=== PATIENT | female | born 1985 | race Caucasian/White ===

== ENCOUNTER 2020-04-26 00:13 | Inpatient (IN) | payer MEDICARE, MEDICAID, SELFPAY ==
[2020-04-26] VITALS (15 sets, daily range): BP systolic 87–129; BP diastolic 55–71; PULSE 47–88; RESP 14–20; TEMP 36.2–37.1; O2SAT 97–100; BMI 31.8
--- NOTE | 2020-04-26 01:21 | CT_ITS ---
EXAMINATION: CT CHEST WITH CONTRAST CLINICAL INFORMATION: Right breast abscess. Necrotic tissue. COMPARISON: None. TECHNIQUE: Contiguous axial thin section helical images of the chest were performed following the administration of 65 mL of intravenous Omnipaque 350. The data set was reformatted in the coronal and sagittal planes and reviewed on an independent workstation. DLP: 373 mGy-cm. FINDINGS: The heart is of normal size. There is no pericardial effusion. There is neither mediastinal, hilar nor axillary lymphadenopathy. Beneath the right nipple, there is an approximately 8.3 cm low-attenuation focus with faint peripheral enhancement. About this focus, there is fat stranding and trace free fluid. Overlying this focus, there is skin thickening about the nipple. Review of lung windows demonstrates that there are neither pleural effusions nor pneumothoraces. There are no consolidations. There are no pulmonary parenchymal nodules. The visualized upper abdomen demonstrates that the liver is of normal size and attenuation without focal lesions. Normal adrenal glands are identified. Bone windows: Neither sclerotic nor lytic bone lesions are identified. CT/CT chest w con IMPRESSION: Approximately 8.3 cm low-attenuation focus with faint peripheral enhancement is identified deep to the right nipple. The appearance is nonspecific, though could correspond to an abscess or phlegmon. This lesion would be much better evaluated with ultrasound to determine the feasibility of draining the lesion. Automated exposure control (Care Dose) Adjustment of the mA and/or kv according to patient size (this includes techniques or standardized protocols for targeted exams where dose is matched to indication / reason for exam; i.e. extremities or head).
--- NOTE | 2020-04-26 01:40 | ED.SKABFB ---
HPI - Skin/Abscess/Foreign Bdy General Chief complaint: Skin/Abscess/Foreign Body Stated complaint: Lump on breast Time Seen by Provider: 04/26/20 00:56 Source: patient Mode of arrival: ambulatory Limitations: no limitations History of Present Illness HPI narrative: Patient comes to emergency room complaining of a lesion in her right breast. Patient states about 5 days ago, she noticed that her breast was getting erythematous, tender, yesterday patient notice that there was a black cervical on her breast, looked like a bruised with black dots in it. 24 hours later, it turned into a black eschar. Patient complaining of pain. Patient denies fever chills. Of note, likely related to today's condition, patient mentioned that she got bitten by a spider in her back approximately 1 month ago, the lesion healed. Three months ago patient had her nipples pierced, has not had any issues since then. MD complaint: abscess/boil, lesion and discoloration Related Data Home Medications Medication Instructions Recorded Confirmed clonazepam 1 tab PO TID 04/26/20 04/26/20 clonidine HCl 1 tab PO BID 04/26/20 04/26/20 gabapentin 2 cap PO TID 04/26/20 04/26/20 meloxicam 1 tab PO DAILY 04/26/20 04/26/20 topiramate 1 tab PO BID 04/26/20 04/26/20 venlafaxine 1 tab PO DAILY 04/26/20 04/26/20 Allergies Allergy/AdvReac Type Severity Reaction Status Date / Time No Known Allergies Allergy Verified 04/26/20 01:01 [No Known Allergies*] Review of Systems Review of Systems: Constitutional : No Weight loss, No Fever, No Chills, No Night Sweats, No Fatigue, No Malaise ENT/Mouth : No Hearing loss, No Ear Pain, No Nasal Congestion, No Sinus Pain, No Hoarseness, No sore throat, No Rhinorrhea, No Swallowing Difficulty Eyes: No Eye Pain, No Swelling, No Redness, No Foreign Body, No Discharge, No Vision Changes Cardiovascular : No Chest Pain, No SOB, No Dyspnea on Exertion, No Orthopnea, No Edema, No Palpitations Respiratory : No Cough, No Sputum, No Wheezing, No Smoke Exposure, No Dyspnea Gastrointestinal : No Nausea, No Vomiting, No Diarrhea, No Constipation, No abdominal Pain, No Hematochezia, No Melena Genitourinary : no irregular bleeding, No Dysuria, No Urinary Frequency, No Hematuria, No Urinary Incontinence, No Urgency, No Flank Pain, No Urinary Flow Changes, No Hesitancy Musculoskeletal : No joint pain, No Myalgias, No Joint Swelling Skin : Erythema and 2 cm x 2 cm eschar in the right breast Neuro : No Weakness, No Numbness, No Paresthesias, No Loss of Consciousness, No Dizziness, No Headache Psych : No Anxiety/Panic, No Depression, No SI/HI/AH/VH, No Social Issues, Heme/Lymph: No Bruising, No Bleeding,No Lymphadenopathy Endocrine : No Polyuria, No Polydipsia, No Temperature Intolerance [facility] Past Medical History Medical History Arthritis DJD (degenerative joint disease) Fibromyalgia Seizure Spinal stenosis Social History Social History Smoking Status: Current every day smoker Use of substances other than those prescribed or required for medical reasons: No Advance Directives: No Advance Directives Information Provided: No Physical Exam Vital Signs: Vital Signs: Last Vital Signs Temp 98.2 F 04/26/20 00:47 Pulse 88 04/26/20 00:47 Resp 17 04/26/20 00:47 BP 99/62 04/26/20 00:47 Pulse Ox 98 04/26/20 00:47 Body Mass Index 31.8 Appearance: Alert. Oriented X3. No acute distress. Eyes: Pupils equal, round and reactive to light. ENT: Pharynx normal. Neck: Normal inspection. Neck supple. No lymph nodes noted. No crepitus CVS: Normal heart rate and rhythm. Pulses normal. Normal S1 and S2 Respiratory: No respiratory distress. Breath sounds normal. No Wheezing. No rales Abdomen: Soft and nontender. No rigidity. No distention. good BS x4 Skin: Skin over the right breast is erythematous from the nipple medial aspect to the border of the breast medial aspect, tense, warm. At the border of the areola there is a 2 cm x 2 cm black eschar at the 3 o'clock position, piercing in nipple present, we attempted to remove the piercing Extremities: No lower extremity edema. No lower extremity edema. No Lacerations. No Rash Neuro: Oriented X 3. No motor deficit. No sensory deficit. Moving all extermities. No slurred speech. Course Course Course Narrative: IV fluids given based on ideal weight 55 kg. Patient's labs and and CT is pending. Sign-out given to Dr. Thibodeaux. I also spoke to our hospitalist Dr. Butler, who is aware that the patient is being admitted. Dr. Thibodeaux will also discuss with Dr. Vo if she wants to admit the patient to the surgery service or to the hospitalist service. Patient was started on IV fluids, vancomycin and Zosyn. Patient will likely need surgery consult in the morning for debridement. At this time, sepsis is not suspected CT scan showed an 8.3 cm attenuation, the appearance is nonspecific for abscess versus phlegmon. Ultrasound pending. I discussed the patient with Dr. Thibodeaux, US pending, Dr. Thibodeaux will consult the surgery Service, Dr. Vo has already been paged but the answering service seems to not be working at this time. To be discussed with surgery: discuss drainage in the ER versus drainage in the OR MDM - Skin/Abscess/Foreign Bdy Lab Data Result diagrams: 04/26/20 01:42 04/26/20 01:42 Labs: Lab Results 04/26/20 04/26/20 04/26/20 Range/Units 01:42 01:42 01:42 WBC 12.1 H (4.8-10.8) X10*3/uL RBC 4.36 (4.20-5.50) X10*6/uL Hgb 13.0 (12.0-16.0) g/dl Hct 39.1 (37-47) % MCV 89.7 (80-98) fL MCH 29.8 (27.0-33.0) pg MCHC 33.2 (31.0-35.0) g/dl RDW 13.4 (11.0-16.0) % Plt Count 353 (160-400) X10*3/uL MPV 10.6 (9.4-12.3) fL Immature Gran % (Auto) 0.5 H (0.0-0.4) % Neut % (Auto) 66.8 (45-73) % Lymph % (Auto) 22.7 (20-40) % [place] % (Auto) 5.8 (2-11) % Eos % (Auto) 3.4 (0-4) % Baso % (Auto) 0.8 (0-2) % Lymph # (Auto) 2.8 (1.2-4.9) X10*3/uL [place] # (Auto) 0.7 (0.1-1.2) X10*3/uL Eos # (Auto) 0.4 (0.0-0.4) X10*3/uL Baso # (Auto) 0.1 (0.0-0.2) X10*3/uL Abs Immat Gran (auto) 0.06 H (0.00-0.03) X10*3/uL Absolute Neuts (auto) 8.1 (2.0-8.3) X10*3/uL Absolute Nucleated RBC 0.000 (0.0-0.012) X10*3/uL Nucleated RBC % (auto) 0.0 (0.0-0.2) /100WBC Sodium 138 (135-145) mmol/L Potassium 3.8 (3.3-5.1) mmol/l Chloride 109 H (96-108) mmol/L Carbon Dioxide 21 L (22-29) mmol/L Anion Gap 12 (12-20) BUN 11 (9-16) mg/dL Creatinine 0.70 (0.5-1.4) mg/dL Estim Creat Clear Calc 113.5 Estimated GFR > 60 Random Glucose 83 (60-115) mg/dL Lactic Acid 0.7 (0.5-2.0) mmol/L Calcium 8.7 (8.4-10.2) mg/dL COVID-19 (VIDAL) (Negative) COVID-19 Clin Com 04/26/20 Range/Units 01:57 WBC (4.8-10.8) X10*3/uL RBC (4.20-5.50) X10*6/uL Hgb (12.0-16.0) g/dl Hct (37-47) % MCV (80-98) fL MCH (27.0-33.0) pg MCHC (31.0-35.0) g/dl RDW (11.0-16.0) % Plt Count (160-400) X10*3/uL MPV (9.4-12.3) fL Immature Gran % (Auto) (0.0-0.4) % Neut % (Auto) (45-73) % Lymph % (Auto) (20-40) % [place] % (Auto) (2-11) % Eos % (Auto) (0-4) % Baso % (Auto) (0-2) % Lymph # (Auto) (1.2-4.9) X10*3/uL [place] # (Auto) (0.1-1.2) X10*3/uL Eos # (Auto) (0.0-0.4) X10*3/uL Baso # (Auto) (0.0-0.2) X10*3/uL Abs Immat Gran (auto) (0.00-0.03) X10*3/uL Absolute Neuts (auto) (2.0-8.3) X10*3/uL Absolute Nucleated RBC (0.0-0.012) X10*3/uL Nucleated RBC % (auto) (0.0-0.2) /100WBC Sodium (135-145) mmol/L Potassium (3.3-5.1) mmol/l Chloride (96-108) mmol/L Carbon Dioxide (22-29) mmol/L Anion Gap (12-20) BUN (9-16) mg/dL Creatinine (0.5-1.4) mg/dL Estim Creat Clear Calc Estimated GFR Random Glucose (60-115) mg/dL Lactic Acid (0.5-2.0) mmol/L Calcium (8.4-10.2) mg/dL COVID-19 (VIDAL) Negative (Negative) COVID-19 Clin Com See Note Discharge Plan Discharge Clinical Impression: Abscess of skin or subcutaneous tissue Qualifiers: Site of cutaneous abscess: other site Qualified Code(s): L02.818 - Cutaneous abscess of other sites Cellulitis Qualifiers: Site of cellulitis: unspecified site Qualified Code(s): L03.90 - Cellulitis, unspecified Patient Disposition: Admitted As Inpatient
--- NOTE | 2020-04-26 01:46 | PC.NURSE ---
IV ACCESS OBTAINED BLOOD SPECIMEN SENT TO LAB, PT AWAITING FURTHER TESTING. RED INFLAMED AREA OF RIGHT BREAST OUTLINED WITH SURGICAL PEN.
[2020-04-26 01:50] LABS: Basophils Absolute Auto 0.1 X10*3/uL (0.0-0.2); Basophils Percent Auto 0.8 % (0-2); Eosinophils Absolute Auto 0.4 X10*3/uL (0.0-0.4); Eosinophils Percent Auto 3.4 % (0-4); Hematocrit 39.1 % (37-47); Imm Gran Abs Auto 0.06 X10*3/uL (0.00-0.03); Imm Gran Pct Auto 0.5 % (0.0-0.4); Lymphocytes Absolute Auto 2.8 X10*3/uL (1.2-4.9); Lymphocytes Percent Auto 22.7 % (20-40); Mean Corpuscular HGB Conc 33.2 g/dl (31.0-35.0); Mean Corpuscular Hemoglobin 29.8 pg (27.0-33.0); Mean Corpuscular Volume 89.7 fL (80-98); Mean Platelet Volume 10.6 fL (9.4-12.3); Monocytes Absolute Auto 0.7 X10*3/uL (0.1-1.2); Monocytes Percent Auto 5.8 % (2-11); Neutrophils Absolute Auto 8.1 X10*3/uL (2.0-8.3); Neutrophils Percent Auto 66.8 % (45-73); Platelet Count 353 X10*3/uL (160-400); Red Blood Count 4.36 X10*6/uL (4.20-5.50); Red Cell Distribution Width 13.4 % (11.0-16.0); White Blood Count 12.1 X10*3/uL (4.8-10.8)
[2020-04-26 01:54] LABS: MANUAL DIFF FLAG NO
[2020-04-26] MEDS: Piperacillin Sodium/Tazobactam 4.5 GM in 0.9 % Sodium Chloride 100 ML IV (02:00)
[2020-04-26] MEDS: 0.9 % Sodium Chloride 1,000 ML 999 ML IVCONT ×2 (02:00→02:02)
[2020-04-26 02:07] LABS: Lactic Acid 0.7 mmol/L (0.5-2.0)
[2020-04-26 02:09] LABS: Anion Gap 12 (12-20); Blood Urea Nitrogen 11 mg/dL (9-16); Calcium 8.7 mg/dL (8.4-10.2); Carbon Dioxide 21 mmol/L (22-29); Chloride 109 mmol/L (96-108); Creatinine Clr Calc Pharmacy 113.5; Estimated Glomerular Filt Rate > 60; Glucose Random 83 mg/dL (60-115); Potassium 3.8 mmol/l (3.3-5.1); Sodium 138 mmol/L (135-145)
[2020-04-26 02:18] LABS: COVID-19 Test Negative (Negative)
--- NOTE | 2020-04-26 03:09 | US_ITS ---
EXAMINATION: US DIAGNOSTIC ULTRASOUND BREAST, RIGHT CLINICAL INFORMATION: Right breast lesion. Abscess versus phlegmon. COMPARISON: Same day chest CT. TECHNIQUE: Ultrasound of the breast is performed with real-time hernandez scale imaging and color Doppler. FINDINGS: Deep to the right nipple near the 3:00 location is approximately 7.9 x 7.6 x 6.9 cm heterogeneous soft tissue echogenicity focus with faint peripheral fluid. US/US breast RT limited IMPRESSION: At the 3:00 location, there is an approximately 7.9 cm heterogeneous soft tissue echogenicity focus with faint peripheral fluid. The appearance is nonspecific, though likely corresponds to an abscess versus phlegmon. ASSESSMENT: BI-RADS 2: Benign This patient's information was entered into a reminder system with a target due date for their next mammogram.
[2020-04-26] MEDS: vancomycin HCL 1,000 MG in 0.9 % Sodium Chloride 250 ML 270 MG IV (03:16)
--- NOTE | 2020-04-26 03:50 | PC.NURSE ---
PT OFF TO TO US.
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
--- NOTE | 2020-04-26 08:06 | PC.NURSE ---
took pt from [facility] at 0700. pt sleeping since shift change. report to [facility] staff. transported to floor by pct. ms overflow to [facility]
--- NOTE | 2020-04-26 08:43 | PM.CNGS ---
History of Present Illness Consult details Consult date: 04/26/20 Reason for consult: other (Right breast abscess) Requesting physician: Gutierrez Butler Narrative: This is a 35-year-old female who has a few day history of increasing pain and swelling in the right breast. She reports that she developed a dark area on the upper aspect of the right breast that progressed to a black spot. She has not had any drainage from the breast. She has not had any similar problems in the past. She does not report any injuries. She smokes about a half pack of cigarettes per day. CT scan of the chest and ultrasound of the right breast were done in the emergency room and are consistent with a large abscess of the right breast. She has nipple piercings and has been unable to remove the piercing on the right. Review of Systems Constitutional: Constitutional: Denies chills and Denies fever(s) Cardiovascular: Cardiovascular: Denies chest pain, Denies chest pain with activity, Denies palpitations and Denies dyspnea Respiratory: Respiratory: Denies cough, Denies dyspnea and Denies wheezing Gastrointestinal: Gastrointestinal: Denies abdominal pain, Denies bloating, Denies nausea and Denies vomiting Genitourinary: Genitourinary: Reports no additional female genitourinary complaints Musculoskeletal: Comments: Chronic low back and leg pain, bilateral moses pain Integumentary/Breasts: Skin/Breast: Reports as per HPI Psychiatric: Comments: History of alcohol use Endocrine: Endocrine: Denies palpitations Hematologic/Lymphatic: Comments: No history of unusual bleeding or blood clots Allergic/Immunologic: Allergic/Immunologic: Denies wheezing PMFSH Past Medical History Medical History Arthritis DJD (degenerative joint disease) Fibromyalgia Seizure Spinal stenosis Social History Social History Household Members: Children Housing: Apartment Are you a primary primary care physician to a significant other at home: Yes Do you presently have visiting nurse or other home services: No Smoking Status: Current every day smoker Tobacco Type: Cigarette Packs Per Day: 0.5 Cigarettes Per Day: 10.0 Years Smoked: 15 Smoked in Last 30 Days: Yes Patient Interested in Nicotine Replacement: No Patient Given Instructions on How to Stop Smoking: Yes Date Education Initiated: 04/26/20 Second Hand Smoke Exposure: No Use of substances other than those prescribed or required for medical reasons: No Currently Displaying Signs/Symptoms of Drug Intoxication Withdrawal: No Have you been hit, kicked, punched, or otherwise hurt by someone within the past year? If so, by whom?: No Do you feel safe in your current relationship?: No Is there a partner from a previous relationship who is making you feel unsafe now?: No Are you made to feel afraid or neglected: No Advance Directives: Yes Advance Directives Information Provided: No Advance Directives on File: No Advance Directives Date on File: 04/26/20 Do you have thoughts of harming others: None Do you have a plan to hurt others: No Plan Recently lost weight without trying: No service: No Meds Allergies Allergy/AdvReac Type Severity Reaction Status Date / Time No Known Allergies Allergy Verified 04/26/20 01:01 [No Known Allergies*] Home Medications Medication Instructions Recorded Confirmed Type clonazepam 1 tab PO TID 04/26/20 04/26/20 History clonidine HCl 1 tab PO BID 04/26/20 04/26/20 History cyclobenzaprine 10 mg PO BEDTIME 04/26/20 04/26/20 History gabapentin 2 cap PO TID 04/26/20 04/26/20 History meloxicam 1 tab PO DAILY 04/26/20 04/26/20 History naltrexone microspheres [Vivitrol] 380 mg IM QMONTH 04/26/20 04/26/20 History topiramate 1 tab PO BID 04/26/20 04/26/20 History venlafaxine 1 tab PO DAILY 04/26/20 04/26/20 History Physical Exam Vital Signs: Vital Signs: Last Vital Signs Temp 98.2 F 04/26/20 00:47 Pulse 58 04/26/20 05:53 Resp 16 04/26/20 04:32 BP 95/58 L 04/26/20 05:53 Pulse Ox 100 04/26/20 05:53 Body Mass Index 31.8 Const: General: comfortable, no acute distress and alert Neck: Neck: Yes normal visual inspection, Yes trachea midline and Yes supple Lymphatic: no lymphadenopathy noted Chest: Other: Right breast: Nipple piercing in place, moderate swelling, severe tenderness and fluctuance primarily upper aspect, approximately 2.5 cm eschar present upper inner, no drainage Left breast: Nipple piercing in place, normal inspection Resp: Effort & Inspection: normal respiratory effort Auscultation: clear to auscultation bilaterally Cardio: Rate: regular rate Rhythm: regular rhythm Skin: Other: normal color, warm and dry Results Labs Result diagrams: 04/27/20 04:18 04/27/20 04:18 Labs: Abnormal lab results 04/26/20 04/26/20 Range/Units 01:42 01:42 WBC 12.1 H (4.8-10.8) X10*3/uL Immature Gran % (Auto) 0.5 H (0.0-0.4) % Abs Immat Gran (auto) 0.06 H (0.00-0.03) X10*3/uL Chloride 109 H (96-108) mmol/L Carbon Dioxide 21 L (22-29) mmol/L Short CBC 04/26/20 Range/Units 01:42 WBC 12.1 H (4.8-10.8) X10*3/uL Hgb 13.0 (12.0-16.0) g/dl Hct 39.1 (37-47) % Plt Count 353 (160-400) X10*3/uL BMP 04/26/20 01:42 Sodium 138 Potassium 3.8 Chloride 109 H Carbon Dioxide 21 L BUN 11 Creatinine 0.70 Calcium 8.7 All other labs normal. Laboratory Results WBC 12.1 X10*3/uL (4.8-10.8) H 04/26/20 01:42 RBC 4.36 X10*6/uL (4.20-5.50) 04/26/20 01:42 Hgb 13.0 g/dl (12.0-16.0) 04/26/20 01:42 Hct 39.1 % (37-47) 04/26/20 01:42 MCV 89.7 fL (80-98) 04/26/20 01:42 MCH 29.8 pg (27.0-33.0) 04/26/20 01:42 MCHC 33.2 g/dl (31.0-35.0) 04/26/20 01:42 RDW 13.4 % (11.0-16.0) 04/26/20 01:42 Plt Count 353 X10*3/uL (160-400) 04/26/20 01:42 MPV 10.6 fL (9.4-12.3) 04/26/20 01:42 Immature Gran % (Auto) 0.5 % (0.0-0.4) H 04/26/20 01:42 Neut % (Auto) 66.8 % (45-73) 04/26/20 01:42 Lymph % (Auto) 22.7 % (20-40) 04/26/20 01:42 Ballard % (Auto) 5.8 % (2-11) 04/26/20 01:42 Eos % (Auto) 3.4 % (0-4) 04/26/20 01:42 Baso % (Auto) 0.8 % (0-2) 04/26/20 01:42 Lymph # (Auto) 2.8 X10*3/uL (1.2-4.9) 04/26/20 01:42 Ballard # (Auto) 0.7 X10*3/uL (0.1-1.2) 04/26/20 01:42 Eos # (Auto) 0.4 X10*3/uL (0.0-0.4) 04/26/20 01:42 Baso # (Auto) 0.1 X10*3/uL (0.0-0.2) 04/26/20 01:42 Abs Immat Gran (auto) 0.06 X10*3/uL (0.00-0.03) H 04/26/20 01:42 Absolute Neuts (auto) 8.1 X10*3/uL (2.0-8.3) 04/26/20 01:42 Absolute Nucleated RBC 0.000 X10*3/uL (0.0-0.012) 04/26/20 01:42 Nucleated RBC % (auto) 0.0 /100WBC (0.0-0.2) 04/26/20 01:42 Sodium 138 mmol/L (135-145) 04/26/20 01:42 Potassium 3.8 mmol/l (3.3-5.1) 04/26/20 01:42 Chloride 109 mmol/L (96-108) H 04/26/20 01:42 Carbon Dioxide 21 mmol/L (22-29) L 04/26/20 01:42 Anion Gap 12 (12-20) 04/26/20 01:42 BUN 11 mg/dL (9-16) 04/26/20 01:42 Creatinine 0.70 mg/dL (0.5-1.4) 04/26/20 01:42 Estim Creat Clear Calc 113.5 04/26/20 01:42 Estimated GFR > 60 04/26/20 01:42 Random Glucose 83 mg/dL (60-115) 04/26/20 01:42 Lactic Acid 0.7 mmol/L (0.5-2.0) 04/26/20 01:42 Calcium 8.7 mg/dL (8.4-10.2) 04/26/20 01:42 COVID-19 (VIDAL) Negative (Negative) 04/26/20 01:57 COVID-19 Clin Com See Note 04/26/20 01:[address] 04/26/20 01:21 IMPRESSION: Approximately 8.3 cm low-attenuation focus with faint peripheral enhancement is identified deep to the right nipple. The appearance is nonspecific, though could correspond to an abscess or phlegmon. This lesion would be much better evaluated with ultrasound to determine the feasibility of draining the lesion. Automated exposure control (Care Dose) Adjustment of the mA and/or kv according to patient size (this includes techniques or standardized protocols for targeted exams where dose is matched to indication / reason for exam; i.e. extremities or head). Breast Ultrasound 04/26/20 03:09 IMPRESSION: At the 3:00 location, there is an approximately 7.9 cm heterogeneous soft tissue echogenicity focus with faint peripheral fluid. The appearance is nonspecific, though likely corresponds to an abscess versus phlegmon. ASSESSMENT: BI-RADS 2: Benign This patient's information was entered into a reminder system with a target due date for their next mammogram. Assessment and Plan (1) Abscess of right breast: Status: Acute She has a right breast abscess with overlying eschar. Operative drainage rather than image guided drainage is appropriate. I have discussed this with her and have reviewed risks for recurrence, infection, bleeding, and scarring with breast deformity. The nipple piercing will be removed under anesthesia and may need to be cut if it cannot be removed when she is asleep. She was unable to remove it while awake. She agrees to proceed. She has been started on IV antibiotics. Surgery is scheduled for later today.
--- NOTE | 2020-04-26 09:02 | MHC.CM.PN ---
met benavides pt who had no servceis prior to admission she does not anticapte the need for sercveis when dcd
[2020-04-26] MEDS: Lactated Ringers 500 ML 999 ML IVCONT (09:54)
--- NOTE | 2020-04-26 10:39 | P.CONAN_ITS ---
HPI - Anesthesia Eval Consult details Narrative: 35 F p/f breast abscess I&D under [place] [facility] Past Medical History Medical History Arthritis DJD (degenerative joint disease) Fibromyalgia Seizure Spinal stenosis Social History Social History Household Members: Children Housing: Apartment Do you presently have visiting nurse or other home services: No Smoking Status: Current every day smoker Tobacco Type: Cigarette Packs Per Day: 0.5 Cigarettes Per Day: 10.0 Years Smoked: 15 Smoked in Last 30 Days: Yes Patient Interested in Nicotine Replacement: No Patient Given Instructions on How to Stop Smoking: Yes Date Education Initiated: 04/26/20 Second Hand Smoke Exposure: No Use of substances other than those prescribed or required for medical reasons: No Currently Displaying Signs/Symptoms of Drug Intoxication Withdrawal: No Have you been hit, kicked, punched, or otherwise hurt by someone within the past year? If so, by whom?: No Do you feel safe in your current relationship?: No Is there a partner from a previous relationship who is making you feel unsafe now?: No Are you made to feel afraid or neglected: No Advance Directives: Yes Advance Directives Information Provided: No Advance Directives on File: No Advance Directives Date on File: 04/26/20 Do you have thoughts of harming others: None Do you have a plan to hurt others: No Plan Recently lost weight without trying: No service: No Meds Allergies Allergy/AdvReac Type Severity Reaction Status Date / Time No Known Allergies Allergy Verified 04/26/20 01:01 [No Known Allergies*] Home Medications Medication Instructions Recorded Confirmed Type clonazepam 1 tab PO TID 04/26/20 04/26/20 History clonidine HCl 1 tab PO BID 04/26/20 04/26/20 History gabapentin 2 cap PO TID 04/26/20 04/26/20 History meloxicam 1 tab PO DAILY 04/26/20 04/26/20 History topiramate 1 tab PO BID 04/26/20 04/26/20 History venlafaxine 1 tab PO DAILY 04/26/20 04/26/20 History Exam Exam Date and Time: April 26, 2020 1039 Height,Weight and Vital Signs: Height 5 ft 3 in Weight 81.647 kg Last Vital Signs Temp 97.6 F 04/26/20 08:00 Pulse 57 04/26/20 08:00 Resp 17 04/26/20 08:00 BP 103/61 04/26/20 08:00 Pulse Ox 99 04/26/20 08:00 Pertinent Lab Results Pertinent Lab Results: Laboratory Tests 04/26/20 04/26/20 04/26/20 01:42 01:42 01:42 WBC 12.1 H RBC 4.36 Hgb 13.0 Hct 39.1 MCV 89.7 MCH 29.8 MCHC 33.2 RDW 13.4 Plt Count 353 MPV 10.6 Immature Gran % (Auto) 0.5 H Neut % (Auto) 66.8 Lymph % (Auto) 22.7 Mccracken % (Auto) 5.8 Eos % (Auto) 3.4 Baso % (Auto) 0.8 Lymph # (Auto) 2.8 [place]racken # (Auto) 0.7 Eos # (Auto) 0.4 Baso # (Auto) 0.1 Abs Immat Gran (auto) 0.06 H Absolute Neuts (auto) 8.1 Absolute Nucleated RBC 0.000 Nucleated RBC % (auto) 0.0 Sodium 138 Potassium 3.8 Chloride 109 H Carbon Dioxide 21 L Anion Gap 12 BUN 11 Creatinine 0.70 Estim Creat Clear Calc 113.5 Estimated GFR > 60 Random Glucose 83 Lactic Acid 0.7 Calcium 8.7 COVID-19 (VIDAL) COVID-19 Clin Com 04/26/20 01:57 WBC RBC Hgb Hct MCV MCH MCHC RDW Plt Count MPV Immature Gran % (Auto) Neut % (Auto) Lymph % (Auto) Mccracken % (Auto) Eos % (Auto) Baso % (Auto) Lymph # (Auto) M[place]racken # (Auto) Eos # (Auto) Baso # (Auto) Abs Immat Gran (auto) Absolute Neuts (auto) Absolute Nucleated RBC Nucleated RBC % (auto) Sodium Potassium Chloride Carbon Dioxide Anion Gap BUN Creatinine Estim Creat Clear Calc Estimated GFR Random Glucose Lactic Acid Calcium COVID-19 (VIDAL) Negative COVID-19 Clin Com See Note Airway Mallampati Class: II TM Dist: >3cm Neck ROM: Full Loose/Missing/Broken Teeth: No Heart: rrr Lungs: n l Other: ao Assessment and Plan Assessment Anesthesia Assessment: Anesthesia Plan Discussed and Chart Reviewed Final Anesthetic Review NPO: Yes ASA Class: II Final Preanesthetic Review: No Changes in Pt Med Stat, Meds/Allgs Chart Reviewed, Consent Obtained/Reviewed and Anes Risks/Benef Reviewed Patient Risk: Low Procedure Risk: Low Anesthetic Plan Anesthetic Plan: GA Disposition: Standard PACU
[2020-04-26 10:56] LABS: UPreg QC Valid YES; Urine Pregnancy NEGATIVE (NEGATIVE)
--- NOTE | 2020-04-26 11:35 | HO.PM.IMPN ---
Subjective Subjective Date of Service: 04/26/20 Interval History: improved Cardiovascular Cardiovascular: Reports no additional cardiovascular complaints Respiratory Respiratory: Reports no additional respiratory complaints Physical Exam Vital Signs: Vital Signs: Last Vital Signs Temp 97.1 F 04/26/20 11:01 Pulse 58 04/26/20 11:01 Resp 17 04/26/20 11:01 BP 103/59 L 04/26/20 11:01 Pulse Ox 98 04/26/20 11:01 Body Mass Index 31.8 General: AO X 3, no acute distress Resp: CTA bilateral CVS: S1,S2,RRR GI: soft, non tender, non distended Neuro: motor grossly intact Psych: appropriate affect Objective Data Current Medications Generic Name Dose Route Start Last Admin Trade Name Freq PRN Reason Stop Dose Admin Acetaminophen 650 mg 04/26/20 06:12 Acetaminophen 325 Mg Tablet PO Q6H PRN Pain, Mild (Pain Scale 1-3) Clonazepam 0.5 mg 04/26/20 09:00 Clonazepam 0.5 Mg Tablet PO TID CHRISTY Docusate Sodium 100 mg 04/26/20 06:12 Docusate Sodium 100 Mg Capsule PO DAILY PRN Constipation Gabapentin 600 mg 04/26/20 09:00 Gabapentin 300 Mg Capsule PO TID CHRISTY Vancomycin HCl 750 mg/ 275 mls @ 183.333 mls/hr 04/26/20 15:00 Vancomycin HCl 500 mg/ Sodium IV Chloride Q12H CHRISTY Lactated Ringer's 1,000 mls @ 50 mls/hr 04/26/20 11:45 Lr IVCONT .Q20H CHRISTY Ketorolac Tromethamine 30 mg 04/26/20 06:12 Ketorolac Tromethamine 30 Mg/Ml Vial IVPUSH Q6H PRN Pain, Mild (Pain Scale 1-3) Ondansetron HCl 4 mg 04/26/20 06:12 Ondansetron Hcl 4 Mg/2 Ml Vial IVPUSH Q8H PRN Nausea and Vomiting Pharmacy Consult 1 each 04/26/20 01:44 Consult Rx Perform Med Rec MISCELLANE ONCE PRN Consult order Pharmacy Consult 1 each 04/26/20 06:12 Consult Rx Vancomycin Dosing MISCELLANE DAILY PRN Consult order Pharmacy Consult 1 each 04/26/20 07:14 Consult Rx Vancomycin Dosing MISCELLANE DAILY PRN Consult order Sodium Chloride 3 ml 04/26/20 08:00 04/26/20 09:55 0.9 % Sodium Chloride Flush 3 Ml Syringe IVFLUSH Not Given QSHIFT CHRISTY Topiramate 100 mg 04/26/20 09:00 Topiramate 100 Mg Tablet PO BID CHRISTY Venlafaxine HCl 225 mg 04/26/20 09:00 Venlafaxine Hcl Er 75 Mg Cap.Er.24h PO DAILY CHRISTY Labs CBC & Chem 7: 04/26/20 01:42 04/26/20 01:42 Assessment and Plan (1) Abscess of skin or subcutaneous tissue: Status: Acute (2) Cellulitis: Status: Acute Assessment and Plan: This is a 35-year-old female with past medical history as mentioned above who presents to the hospital with right breast swelling as well as skin changes breast abscess surgery appreciated plan for drainage continue vanc hypertension on clonidine, relative hypotension, on hold seizure topiramate DVT prophylaxis: Early ambulation/SCDs
[2020-04-26] MEDS: Acetaminophen 325 MG TABLET 975 MG PO (11:58)
[2020-04-26] MEDS: Gabapentin 400 MG CAPSULE PO (12:01)
[2020-04-26] MEDS: Topiramate 100 MG TABLET PO ×2 (12:01→20:54)
--- NOTE | 2020-04-26 13:14 | P.OP_ITS ---
Operative Note Operative Note Date of Service: 04/26/20 Narrative: Preoperative diagnosis: Right breast abscess Postoperative diagnosis: Same Procedure: Incision, drainage and debridement right breast Building Maintenance Worker: Vivienne Nielsen PA-C Anesthesia: General laryngeal mask Estimated blood loss: Less than 5 cc Specimen: Cultures Immediate complications: None Indications: This is a 35-year-old female with a several day history of increasing pain and swelling in the right breast as well as the dark discoloration in the medial aspect of the right breast. Examination and imaging revealed findings consistent with a right breast abscess with focal eschar. Procedure in detail: With the patient in the supine position following induction of adequate general anesthesia, time-out procedure was performed. She was on scheduled antibiotics and no additional antibiotics were administered. The right breast was prepped with Betadine solution and was draped sterilely. The eschar measured about 2.5 cm in diameter and was located around the 3 o'clock position extending from the medial aspect of the areola into the medial breast. Incision was made along the border of the eschar and in the yeah immediate subcutaneous tissue, the abscess cavity was encountered. A large a mount of thick purulence material was drained. Cultures were taken. The eschar was removed using sharp excision with Metzenbaum scissors. Excision was carried back to healthy-appearing skin edges. The wound was copiously irrigated with saline solution and was inspected for bleeding. No significant bleeding was identified. Along the superior aspect of the wound, skin edges were loosely reapproximated using 2 interrupted sutures of 3-0 nylon spaced approximately 12 mm apart. Two pieces of quarter-inch Angela drain were employed. One was placed through the open portion of the incision inferiorly and directed laterally beneath the areola into the deeper breast tissues. The 2nd piece was placed extending medially and posteriorly. Both were sutured in place to the skin edge using interrupted sutures of 3-0 nylon. A bulky dry sterile dressing was then applied. She tolerated the procedure well and was transported to the postanesthesia care unit in stable condition. There were no immediate complications.
[2020-04-26] MEDS: clonazePAM 0.5 MG TABLET PO ×2 (14:43→20:55)
[2020-04-26] MEDS: Gabapentin 300 MG CAPSULE 600 MG PO ×2 (14:43→20:54)
[2020-04-26] MEDS: Ketorolac Tromethamine 30 MG/ML VIAL IVPUSH (14:57)
[2020-04-26] MEDS: 0.9 % Sodium Chloride Flush 3 ML SYRINGE IVFLUSH ×2 (16:08→20:55)
[2020-04-26] MEDS: Cyclobenzaprine HCl 10 MG TABLET PO (20:54)
[2020-04-27 03:37] VITALS: BP 109/69; PULSE 69; RESP 20; TEMP 36.7; O2SAT 97
[2020-04-27 04:43] LABS: MANUAL DIFF FLAG NO
[2020-04-27 04:56] LABS: Basophils Absolute Auto 0.1 X10*3/uL (0.0-0.2); Basophils Percent Auto 0.5 % (0-2); Eosinophils Absolute Auto 0.1 X10*3/uL (0.0-0.4); Eosinophils Percent Auto 0.9 % (0-4); Hematocrit 36.3 % (37-47); Hemoglobin 11.6 g/dl (12.0-16.0); Imm Gran Abs Auto 0.07 X10*3/uL (0.00-0.03); Imm Gran Pct Auto 0.6 % (0.0-0.4); Lymphocytes Absolute Auto 2.3 X10*3/uL (1.2-4.9); Lymphocytes Percent Auto 19.9 % (20-40); Mean Corpuscular Hemoglobin 29.4 pg (27.0-33.0); Mean Corpuscular Volume 91.9 fL (80-98); Mean Platelet Volume 10.9 fL (9.4-12.3); Monocytes Absolute Auto 0.6 X10*3/uL (0.1-1.2); Monocytes Percent Auto 5.2 % (2-11); Neutrophils Absolute Auto 8.3 X10*3/uL (2.0-8.3); Neutrophils Percent Auto 72.9 % (45-73); Platelet Count 295 X10*3/uL (160-400); Red Blood Count 3.95 X10*6/uL (4.20-5.50); Red Cell Distribution Width 13.6 % (11.0-16.0); White Blood Count 11.4 X10*3/uL (4.8-10.8)
[2020-04-27 05:20] LABS: Anion Gap 13 (12-20); Blood Urea Nitrogen 10 mg/dL (9-16); Calcium 8.3 mg/dL (8.4-10.2); Carbon Dioxide 19 mmol/L (22-29); Chloride 113 mmol/L (96-108); Creatinine Clr Calc Pharmacy 128.1; Estimated Glomerular Filt Rate > 60; Glucose Random 113 mg/dL (60-115); Sodium 141 mmol/L (135-145)
[2020-04-27 07:51] VITALS: BP 114/65; PULSE 52; RESP 19; TEMP 36; O2SAT 98
[2020-04-27] MEDS: Topiramate 100 MG TABLET PO ×2 (08:43→20:29)
[2020-04-27] MEDS: clonazePAM 0.5 MG TABLET PO ×3 (08:44→20:29)
[2020-04-27] MEDS: Gabapentin 300 MG CAPSULE 600 MG PO ×3 (08:45→20:27)
[2020-04-27] MEDS: Venlafaxine HCl ER 75 MG CAP.ER.24H 225 MG PO (08:46)
[2020-04-27] MEDS: 0.9 % Sodium Chloride Flush 3 ML SYRINGE IVFLUSH ×3 (08:47→20:29)
--- NOTE | 2020-04-27 09:14 | PM.PNGS ---
Subjective Subjective Date of Service: 04/27/20 <Vivienne Nielsen PA-C - Last Filed: 04/27/20 09:19> 04/27/20 <Winnie Tello MD - Last Filed: 04/27/20 12:09> Interval history: Feels much better this morning, pain has decreased. Wondering about going home. <Vivienne Nielsen PA-C - Last Filed: 04/27/20 09:19> Physical Exam Vital Signs: Vital Signs: Last Vital Signs Temp 96.8 F 04/27/20 07:51 Pulse 52 04/27/20 07:51 Resp 19 04/27/20 07:51 BP 114/65 04/27/20 07:51 Pulse Ox 98 04/27/20 07:51 Body Mass Index 31.8 <Vivienne Nielsen PA-C - Last Filed: 04/27/20 09:19> Const: General: comfortable, no acute distress and alert <Vivienne Nielsen PA-C - Last Filed: 04/27/20 09:19> Orientation/consciousness: patient oriented x3 <Vivienne Nielsen PA-C - Last Filed: 04/27/20 09:19> Chest: Other: right breast I&D site- sutures intact, remains partially open with toby drains in place, induration and erythema significantly improved, continues with purulent drainage, tender, no further eschar <Vivienne Nielsen PA-C - Last Filed: 04/27/20 09:19> Resp: Effort & Inspection: normal respiratory effort <Vivienne Nielsen PA-C - Last Filed: 04/27/20 09:19> Skin: Rashes: no rashes <Vivienne Nielsen PA-C - Last Filed: 04/27/20 09:19> Neuro: General: patient oriented x3 <Vivienne Nielsen PA-C - Last Filed: 04/27/20 09:19> Extrem: General: Yes no clubbing, cyanosis or edema <Vivienne Nielsen PA-C - Last Filed: 04/27/20 09:19> Progress Note: A&P Assessment and plan (1) Abscess of right breast: Problem details: POD #1 s/p I & D & debridement <Vivienne Nielsen PA-C - Last Filed: 04/27/20 09:19> Status: Acute <Vivienne Nielsen PA-C - Last Filed: 04/27/20 09:19> Assessment and Plan: Remains open and draining; cellulitic changes significantly improved. Vitals, WBC improved. Cont IV abx for at least another day. F/u abscess cultures. Possibly home tomorrow. Will need VNA for dressing changes. Can f/u with Dr. Tello in office for wound care. <Vivienne Nielsen PA-C - Last Filed: 04/27/20 09:19> (2) Cellulitis: Status: Acute <ETTA Herron Last Filed: 04/27/20 09:19> Fall Risk Details Current Medications: Current Medications Generic Name Dose Route Start Last Admin Trade Name Freq PRN Reason Stop Dose Admin Acetaminophen 650 mg 04/26/20 06:12 Acetaminophen 325 Mg Tablet PO Q6H PRN Pain, Mild (Pain Scale 1-3) Clonazepam 0.5 mg 04/26/20 09:00 04/27/20 08:44 Clonazepam 0.5 Mg Tablet PO 0.5 mg TID CHRISTY Administration Cyclobenzaprine HCl 10 mg 04/26/20 21:00 04/26/20 20:54 Cyclobenzaprine Hcl 10 Mg Tablet PO 10 mg BEDTIME CHRISTY Administration Docusate Sodium 100 mg 04/26/20 06:12 Docusate Sodium 100 Mg Capsule PO DAILY PRN Constipation Gabapentin 600 mg 04/26/20 09:00 04/27/20 08:45 Gabapentin 300 Mg Capsule PO 600 mg TID CHRISTY Administration Vancomycin HCl 750 mg/ 275 mls @ 183.333 mls/hr 04/26/20 15:00 04/27/20 05:29 Vancomycin HCl 500 mg/ Sodium IV Infused Chloride Q12H CHRISTY Infusion Ketorolac Tromethamine 30 mg 04/26/20 06:12 04/26/20 14:57 Ketorolac Tromethamine 30 Mg/Ml Vial IVPUSH 30 mg Q6H PRN Administration Pain, Mild (Pain Scale 1-3) Ketorolac Tromethamine 30 mg 04/26/20 13:28 Ketorolac Tromethamine 30 Mg/Ml Vial IVPUSH ONCE PRN Pain, Moderate (Pain Scale 4-6 Ondansetron HCl 4 mg 04/26/20 06:12 Ondansetron Hcl 4 Mg/2 Ml Vial IVPUSH Q8H PRN Nausea and Vomiting Pharmacy Consult 1 each 04/26/20 01:44 Consult Rx Perform Med Rec MISCELLANE ONCE PRN Consult order Pharmacy Consult 1 each 04/26/20 06:12 Consult Rx Vancomycin Dosing MISCELLANE DAILY PRN Consult order Pharmacy Consult 1 each 04/26/20 07:14 Consult Rx Vancomycin Dosing MISCELLANE DAILY PRN Consult order Sodium Chloride 3 ml 04/26/20 08:00 04/27/20 08:47 0.9 % Sodium Chloride Flush 3 Ml Syringe IVFLUSH 3 ml QSHIFT CHRISTY Administration Topiramate 100 mg 04/26/20 09:00 04/27/20 08:43 Topiramate 100 Mg Tablet PO 100 mg BID CHRISTY Administration Venlafaxine HCl 225 mg 04/26/20 09:00 04/27/20 08:46 Venlafaxine Hcl Er 75 Mg Cap.Er.24h PO 225 mg DAILY CHRISTY Administration <Vivienne Nielsen PA-C - Last Filed: 04/27/20 09:19> Time Spent With Patient Time: Total time spent is greater than 50% in coordination of care (as documented) at patient's floor/unit and/or counseling patient: <Vivienne Nielsen PA-C - Last Filed: 04/27/20 09:19> Time with patient: 15 - 24 minutes <Vivienne Nielsen PA-C - Last Filed: 04/27/20 09:19>
--- NOTE | 2020-04-27 09:38 | HO.PM.IMPN ---
Subjective Subjective Date of Service: 04/27/20 Interval History: feeling better Cardiovascular Cardiovascular: Reports no additional cardiovascular complaints Respiratory Respiratory: Reports no additional respiratory complaints Physical Exam Vital Signs: Vital Signs: Last Vital Signs Temp 96.8 F 04/27/20 07:51 Pulse 52 04/27/20 07:51 Resp 19 04/27/20 07:51 BP 114/65 04/27/20 07:51 Pulse Ox 98 04/27/20 07:51 Body Mass Index 31.8 General: AO X 3, no acute distress Resp: CTA bilateral CVS: S1,S2,RRR GI: soft, non tender, non distended Neuro: motor grossly intact Psych: appropriate affect Objective Data Current Medications Generic Name Dose Route Start Last Admin Trade Name Freq PRN Reason Stop Dose Admin Acetaminophen 650 mg 04/26/20 06:12 Acetaminophen 325 Mg Tablet PO Q6H PRN Pain, Mild (Pain Scale 1-3) Clonazepam 0.5 mg 04/26/20 09:00 04/27/20 08:44 Clonazepam 0.5 Mg Tablet PO 0.5 mg TID CHRISTY Administration Cyclobenzaprine HCl 10 mg 04/26/20 21:00 04/26/20 20:54 Cyclobenzaprine Hcl 10 Mg Tablet PO 10 mg BEDTIME CHRISTY Administration Docusate Sodium 100 mg 04/26/20 06:12 Docusate Sodium 100 Mg Capsule PO DAILY PRN Constipation Gabapentin 600 mg 04/26/20 09:00 04/27/20 08:45 Gabapentin 300 Mg Capsule PO 600 mg TID CHRISTY Administration Vancomycin HCl 750 mg/ 275 mls @ 183.333 mls/hr 04/26/20 15:00 04/27/20 05:29 Vancomycin HCl 500 mg/ Sodium IV Infused Chloride Q12H CHRISTY Infusion Ketorolac Tromethamine 30 mg 04/26/20 06:12 04/26/20 14:57 Ketorolac Tromethamine 30 Mg/Ml Vial IVPUSH 30 mg Q6H PRN Administration Pain, Mild (Pain Scale 1-3) Ketorolac Tromethamine 30 mg 04/26/20 13:28 Ketorolac Tromethamine 30 Mg/Ml Vial IVPUSH ONCE PRN Pain, Moderate (Pain Scale 4-6 Ondansetron HCl 4 mg 04/26/20 06:12 Ondansetron Hcl 4 Mg/2 Ml Vial IVPUSH Q8H PRN Nausea and Vomiting Pharmacy Consult 1 each 04/26/20 01:44 Consult Rx Perform Med Rec MISCELLANE ONCE PRN Consult order Pharmacy Consult 1 each 04/26/20 06:12 Consult Rx Vancomycin Dosing MISCELLANE DAILY PRN Consult order Pharmacy Consult 1 each 04/26/20 07:14 Consult Rx Vancomycin Dosing MISCELLANE DAILY PRN Consult order Sodium Chloride 3 ml 04/26/20 08:00 04/27/20 08:47 0.9 % Sodium Chloride Flush 3 Ml Syringe IVFLUSH 3 ml QSHIFT CHRISTY Administration Topiramate 100 mg 04/26/20 09:00 04/27/20 08:43 Topiramate 100 Mg Tablet PO 100 mg BID CHRISTY Administration Venlafaxine HCl 225 mg 04/26/20 09:00 04/27/20 08:46 Venlafaxine Hcl Er 75 Mg Cap.Er.24h PO 225 mg DAILY CHRISTY Administration Labs CBC & Chem 7: 04/27/20 04:18 04/27/20 04:18 Microbiology Microbiology Results: Microbiology 04/26/20 01:42 Blood - Venous Blood Culture - Preliminary No growth after 24 hours. 04/26/20 01:44 Blood - Venous Blood Culture - Preliminary No growth after 24 hours. 04/26/20 Unknown Breast Right Gram Stain - Final Assessment and Plan (1) Abscess of skin or subcutaneous tissue: Status: Acute (2) Cellulitis: Status: Acute Assessment and Plan: This is a 35-year-old female with past medical history as mentioned above who presents to the hospital with right breast swelling as well as skin changes breast abscess surgery appreciated s/p I and D continue vanc IV another day, follow up cultures hypertension on clonidine, relative hypotension, on hold, can likely stop seizure topiramate DVT prophylaxis: Early ambulation/SCDs
[2020-04-27 11:40] VITALS: BP 116/65; PULSE 62; RESP 20; TEMP 36.3; O2SAT 100
--- NOTE | 2020-04-27 11:45 | MHC.CM.PN ---
Addendum entered by Celsa Kitchen RN 04/27/20 16:21: PT CHOSE [facility], PER PT REQUEST PT FIRST VISIT WILL BE 04/30/20, NURSING TO START TEEACHING FOR DRESSING CHANGES AND DRAIN CARE. Addendum entered by Celsa Kitchen RN 04/27/20 15:36: VERIFIED PATIENT PHONE NUMBER [phone] Original Note: CM MET WITH PATIENT DUE TO NEED FOR VNA SERVICES, PATIENT HAS NO PREFERENCE OF [facility], REFERRAL MADE TO [facility], CM VERIFIED PCP AND HCP WITH PATIENT. PATIENT WAS TEARFUL AND REPORTS SHE WANTED TO LEAVE TODAY DUE TO NOT FINISHING HER PIO SHOPPING HOWEVER SPOKE WITH SURGEON AND KNOWS SHE NEEDS AT LEAST ONE MORE DAY OF IV ANTIBIOTICS. PLAN TO DISCHARGE HOME W/[facility] FOR DRESSING CHANGES AND DRAINS. PCP: DONNA KING HCP: CYDNEY REMY (MOTHER) [phone]
[2020-04-27] MEDS: Acetaminophen 325 MG TABLET 650 MG PO (13:41)
[2020-04-27 13:47] LABS: Vancomycin Trough 13.7 mcg/mL (10.0-20.0)
[2020-04-27 15:51] VITALS: BP 112/63; PULSE 69; RESP 16; TEMP 36.7; O2SAT 99
[2020-04-27 19:12] VITALS: BP 112/78; PULSE 68; RESP 20; TEMP 36.7; O2SAT 98
[2020-04-27] MEDS: Ketorolac Tromethamine 30 MG/ML VIAL IVPUSH (19:19)
[2020-04-27] MEDS: Cyclobenzaprine HCl 10 MG TABLET PO (20:28)
[2020-04-27 23:23] VITALS: BP 100/61; PULSE 69; RESP 20; TEMP 36.7; O2SAT 96
[2020-04-28] MEDS: Acetaminophen 325 MG TABLET 650 MG PO (03:46)
[2020-04-28 03:48] VITALS: BP 101/67; PULSE 51; RESP 19; TEMP 36.7; O2SAT 98
[2020-04-28 06:19] LABS: MANUAL DIFF FLAG NO
[2020-04-28 06:22] LABS: Basophils Absolute Auto 0.1 X10*3/uL (0.0-0.2); Basophils Percent Auto 1.3 % (0-2); Eosinophils Absolute Auto 0.5 X10*3/uL (0.0-0.4); Eosinophils Percent Auto 5.6 % (0-4); Hematocrit 35.7 % (37-47); Hemoglobin 11.4 g/dl (12.0-16.0); Imm Gran Abs Auto 0.08 X10*3/uL (0.00-0.03); Lymphocytes Absolute Auto 3.3 X10*3/uL (1.2-4.9); Lymphocytes Percent Auto 41.2 % (20-40); Mean Corpuscular HGB Conc 31.9 g/dl (31.0-35.0); Mean Corpuscular Hemoglobin 29.2 pg (27.0-33.0); Mean Corpuscular Volume 91.5 fL (80-98); Mean Platelet Volume 10.9 fL (9.4-12.3); Monocytes Absolute Auto 0.5 X10*3/uL (0.1-1.2); Neutrophils Absolute Auto 3.6 X10*3/uL (2.0-8.3); Neutrophils Percent Auto 44.9 % (45-73); Platelet Count 278 X10*3/uL (160-400); Red Cell Distribution Width 13.9 % (11.0-16.0)
[2020-04-28 07:11] LABS: Anion Gap 11 (12-20); Blood Urea Nitrogen 16 mg/dL (9-16); Calcium 8.1 mg/dL (8.4-10.2); Carbon Dioxide 21 mmol/L (22-29); Chloride 114 mmol/L (96-108); Creatinine Clr Calc Pharmacy 115.1; Estimated Glomerular Filt Rate > 60; Glucose Fasting 87 mg/dL (60-99); Sodium 142 mmol/L (135-145)
[2020-04-28 08:00] VITALS: BP 151/84; PULSE 55; RESP 16; TEMP 36.4; O2SAT 98
[2020-04-28] MEDS: Gabapentin 300 MG CAPSULE 600 MG PO (08:46)
[2020-04-28] MEDS: Topiramate 100 MG TABLET PO (08:47)
[2020-04-28] MEDS: Venlafaxine HCl ER 75 MG CAP.ER.24H 225 MG PO (08:48)
[2020-04-28] MEDS: 0.9 % Sodium Chloride Flush 3 ML SYRINGE IVFLUSH (08:49)
[2020-04-28] MEDS: clonazePAM 0.5 MG TABLET PO (08:52)
--- NOTE | 2020-04-28 09:04 | P.PNGS_ITS ---
Subjective Subjective Date of Service: 04/28/20 Interval history: She reports ongoing right breast pain, worse with movement, but improved from preop. Physical Exam Vital Signs: Vital Signs: Last Vital Signs Temp 97.5 F 04/28/20 08:00 Pulse 55 04/28/20 08:00 Resp 16 04/28/20 08:00 BP 151/84 H 04/28/20 08:00 Pulse Ox 98 04/28/20 08:00 Body Mass Index 31.8 Const: Other: Alert, appears comfortable, in no distress Chest: Other: Right breast open wound upper inner quadrant at areolar margin. Angela drains in place. Stitches are intact but may cut through. Moderate bloody purulence drainage on dressing. Minimal erythema Progress Note: A&P Assessment and plan (1) Abscess of right breast: Problem details: POD #1 s/p I & D & debridement. Cultures are growing Staph. Status: Acute Assessment and Plan: She is improving. Discussed with Dr. Lacey. She will be discharged today. We will arrange for visiting nurses. She will follow up in the office next week for wound check and drain removal. Fall Risk Details Current Medications: Current Medications Generic Name Dose Route Start Last Admin Trade Name Freq PRN Reason Stop Dose Admin Acetaminophen 650 mg 04/26/20 06:12 04/28/20 03:46 Acetaminophen 325 Mg Tablet PO 650 mg Q6H PRN Administration Pain, Mild (Pain Scale 1-3) Clonazepam 0.5 mg 04/26/20 09:00 04/28/20 08:52 Clonazepam 0.5 Mg Tablet PO 0.5 mg TID CHRISTY Administration Cyclobenzaprine HCl 10 mg 04/26/20 21:00 04/27/20 20:28 Cyclobenzaprine Hcl 10 Mg Tablet PO 10 mg BEDTIME CHRISTY Administration Docusate Sodium 100 mg 04/26/20 06:12 Docusate Sodium 100 Mg Capsule PO DAILY PRN Constipation Gabapentin 600 mg 04/26/20 09:00 04/28/20 08:46 Gabapentin 300 Mg Capsule PO 600 mg TID CHRISTY Administration Vancomycin HCl 750 mg/ 275 mls @ 183.333 mls/hr 04/26/20 15:00 04/28/20 05:47 Vancomycin HCl 500 mg/ Sodium IV Infused Chloride Q12H CHRISTY Infusion Ketorolac Tromethamine 30 mg 04/26/20 06:12 04/27/20 19:19 Ketorolac Tromethamine 30 Mg/Ml Vial IVPUSH 30 mg Q6H PRN Administration Pain, Mild (Pain Scale 1-3) Ketorolac Tromethamine 30 mg 04/26/20 13:28 Ketorolac Tromethamine 30 Mg/Ml Vial IVPUSH ONCE PRN Pain, Moderate (Pain Scale 4-6 Ondansetron HCl 4 mg 04/26/20 06:12 Ondansetron Hcl 4 Mg/2 Ml Vial IVPUSH Q8H PRN Nausea and Vomiting Pharmacy Consult 1 each 04/26/20 01:44 Consult Rx Perform Med Rec MISCELLANE ONCE PRN Consult order Pharmacy Consult 1 each 04/26/20 06:12 Consult Rx Vancomycin Dosing MISCELLANE DAILY PRN Consult order Pharmacy Consult 1 each 04/26/20 07:14 Consult Rx Vancomycin Dosing MISCELLANE DAILY PRN Consult order Sodium Chloride 3 ml 04/26/20 08:00 04/28/20 08:49 0.9 % Sodium Chloride Flush 3 Ml Syringe IVFLUSH 3 ml QSHIFT CHRISTY Administration Topiramate 100 mg 04/26/20 09:00 04/28/20 08:47 Topiramate 100 Mg Tablet PO 100 mg BID CHRISTY Administration Venlafaxine HCl 225 mg 04/26/20 09:00 04/28/20 08:48 Venlafaxine Hcl Er 75 Mg Cap.Er.24h PO 225 mg DAILY CHRISTY Administration Time Spent With Patient Time: Total time spent is greater than 50% in coordination of care (as documente d) at patient's floor/unit and/or counseling patient: Time with patient: less than 15 minutes
--- NOTE | 2020-04-28 09:08 | P.F2F_ITS ---
Service Date Service Date: 04/28/20 Encounter Date of encounter: 04/28/20 Encounter: Open wound right breast with [place] drains in place status post incision and drainage of right breast abscess. There are a few nylon sutures in place. Wound is not tightly closed. Reasons for Services Reason for mcc: wound care (Right breast) and teach disease management MD Overseeing Care: Winnie Tello Homebound: Leaving the home is medically contraindicated at this time without the asist of a device and/or another person due th the listed conditions above and below. Reason homebound: other (Recent surgery, open wound with drainage, cellulitis) Homebound supporting statement: Homebound due to pain, open wound an ongoing drainage. Requires assistance with wound care/dressing changes Certification: Based on the above findings, I certify that this patient is confined to the home and needs intermittent mcc care, physical therapy and/or speech therapy, or continues to need occupational therapy. The patient is under my care, and I have initiated the establishment of the plan of care. The patient will be followed by a physician who will periodically review the plan of care.
--- NOTE | 2020-04-28 09:51 | HO.POSTANES ---
Post Anesthesia Evaluation Post Anesthesia Evaluation Vital Signs: Vital Signs Temp Pulse Resp BP Pulse Ox 04/28/20 08:00 97.5 F 55 16 151/84 H 98 04/28/20 03:48 98.0 F 51 19 101/67 98 04/27/20 23:23 98.1 F 69 20 100/61 96 Anesthesia: General Mental Status: Awake Pain Control: Satisfactory Nausea/Vomiting: None Hydration: Adequate Anesthesia-Related Issues: No Anes. Related Issues
--- NOTE | 2020-04-28 10:09 | P.DS_ITS ---
DS: Providers Provider Date of admission: 04/26/20 04:56 Primary care physician: Unknown Physician Consults: 04/26/20 06:12 Consult to General Surgery Routine Consulting Provider: Winnie Tello Reason for consultation: Right breast abscess/cellulitis Has provider been notified: Yes DS: Diagnosis Discharge Diagnosis (1) Abscess of right breast: Status: Acute Problem details: POD #1 s/p I & D & debridement. Cultures are growing Staph. DS: Medications Discharge Medications Home Medications: Home Medications Medication Instructions Recorded Confirmed Vivitrol 380 mg IM QMONTH 04/26/20 04/26/20 clonazepam 1 tab PO TID 04/26/20 04/26/20 cyclobenzaprine 10 mg PO BEDTIME 04/26/20 04/26/20 gabapentin 2 cap PO TID 04/26/20 04/26/20 meloxicam 1 tab PO DAILY 04/26/20 04/26/20 topiramate 1 tab PO BID 04/26/20 04/26/20 venlafaxine 1 tab PO DAILY 04/26/20 04/26/20 Previous Rx's Medication Instructions Recorded amoxicillin-pot clavulanate 1 tab PO BID #14 tab 04/28/20 [Augmentin] DS: Summary Hospital Course Hospital Course: patient was admitted for breast abscess she underwent incision and drainage. She was given IV vancomycin. Her symptoms improved. Culture grew MSSA. She will be discharged on p.o. Augmentin for 7 more days. She was noted to be borderline hypotensive and bradycardic. Therefore, her clonidine was discontinued. Should she need antihypertensives in the future, would pursue more first-line therapy such as calcium channel kaveh or BARAK-inhibitor. Time Spent with Patient Time attestation: Total time spent providing and/or coordinating discharge services: Physical Exam Vital Signs: Vital Signs: Last Vital Signs Temp 97.5 F 04/28/20 08:00 Pulse 55 04/28/20 08:00 Resp 16 04/28/20 08:00 BP 151/84 H 04/28/20 08:00 Pulse Ox 98 04/28/20 08:00 Body Mass Index 31.8 General: AO X 3, no acute distress Resp: CTA bilateral CVS: S1,S2,RRR GI: soft, non tender, non distended Neuro: motor grossly intact Psych: appropriate affect DS: Data Data Completed and Pending Labs on day of discharge: 04/26/20 01:19 0.9 % Sodium Chloride [Ns] 1,000 ml IVCONT 999 mls/hr Piperacillin Sodium/Tazobactam [Zosyn] 4.5 gm 0.9 % Sodium Chloride [Ns] 100 ml IV ONCE vancomycin HCL 1,000 mg 0.9 % Sodium Chloride [Ns] 250 ml IV ONCE 04/26/20 01:21 CT chest w con Stat 04/26/20 01:42 Basic Metabolic Panel Stat Complete Blood Count Auto Diff Stat Lactic Acid Stat 04/26/20 01:45 0.9 % Sodium Chloride [Ns] 1,000 ml IVCONT 999 mls/hr 04/26/20 01:51 Piperacillin Sodium/Tazobactam [Zosyn] 4.5 gm IV .STK-MED ONE 04/26/20 01:57 COVID-19 ID NOW (Prakash) Stat 04/26/20 02:35 iohexoL 350 MG/ML [Omnipaque 350 MG/ML] 65 ml IV ONCE ONE 04/26/20 03:08 vancomycin HCL 1,000 mg .ROUTE .STK-MED ONE 04/26/20 03:09 US breast RT limited Stat 04/26/20 04:51 Transfer Order Routine 04/26/20 05:15 Lactated Ringers [Lr] 500 ml IVCONT 999 mls/hr 04/26/20 08:39 Transfer Order Routine 04/26/20 10:28 Ur Preg Test Stat 04/26/20 11:23 Midazolam HCl/PF [Versed] 2 mg .ROUTE .STK-MED ONE fentaNYL citrate/PF [Sublimaze] 50 mcg .ROUTE .STK-MED ONE propofoL [Diprivan] 200 mg IVPUSH .STK-MED ONE 04/26/20 11:30 Gabapentin [Neurontin] 400 mg PO ONCE ONE Topiramate [Topamax] 100 mg PO ONCE ONE 04/26/20 11:32 Acetaminophen [Tylenol] 975 mg PO ONCE ONE 04/26/20 11:45 Lactated Ringers [Lr] 1,000 ml IVCONT 50 mls/hr 04/26/20 11:49 Ketorolac Tromethamine [Toradol] 30 mg .ROUTE .STK-MED ONE dexAMETHasone sod phosphate [Decadron] 4 mg .ROUTE .STK-MED ONE ondansetron HCL [Zofran] 4 mg .ROUTE .STK-MED ONE 04/26/20 11:50 Ketamine HCl/NS 50 mg IVPUSH .STK-MED ONE 04/26/20 11:54 Acetaminophen [Tylenol] 325 mg .ROUTE .STK-MED ONE 04/26/20 12:40 Bupivacaine MPF 0.5 % [Sensorcaine MPF 0.5% 10 ML] 10 ml .ROUTE .STK-MED ONE 04/26/20 13:19 Transfer Order Routine 04/26/20 13:28 Continuous pulse oximetry CONT Vital Signs Q1H Vital Signs Q5MIN 04/26/20 13:31 propofoL [Diprivan] 200 mg IVPUSH .STK-MED ONE 04/27/20 03:13 vancomycin HCL 500 mg IV .STK-MED ONE 04/27/20 03:14 vancomycin HCL 750 mg IV .STK-MED ONE 04/27/20 04:18 Basic Metabolic Panel Routine Complete Blood Count Auto Diff Routine 04/27/20 12:54 Vancomycin Trough Stat 04/28/20 03:29 vancomycin HCL 500 mg IV .STK-MED ONE 04/28/20 03:30 vancomycin HCL 750 mg IV .STK-MED ONE 04/28/20 06:02 BMP [Basic Metabolic Panel Fasting] Routine Complete Blood Count Auto Diff Routine Laboratory Last Values WBC 8.0 X10*3/uL (4.8-10.8) 04/28/20 06:02 RBC 3.90 X10*6/uL (4.20-5.50) L 04/28/20 06:02 Hgb 11.4 g/dl (12.0-16.0) L 04/28/20 06:02 Hct 35.7 % (37-47) L 04/28/20 06:02 MCV 91.5 fL (80-98) 04/28/20 06:02 MCH 29.2 pg (27.0-33.0) 04/28/20 06:02 MCHC 31.9 g/dl (31.0-35.0) 04/28/20 06:02 RDW 13.9 % (11.0-16.0) 04/28/20 06:02 Plt Count 278 X10*3/uL (160-400) 04/28/20 06:02 MPV 10.9 fL (9.4-12.3) 04/28/20 06:02 Immature Gran % (Auto) 1.0 % (0.0-0.4) H 04/28/20 06:02 Neut % (Auto) 44.9 % (45-73) L 04/28/20 06:02 Lymph % (Auto) 41.2 % (20-40) H 04/28/20 06:02 Latimer % (Auto) 6.0 % (2-11) 04/28/20 06:02 Eos % (Auto) 5.6 % (0-4) H 04/28/20 06:02 Baso % (Auto) 1.3 % (0-2) 04/28/20 06:02 Lymph # (Auto) 3.3 X10*3/uL (1.2-4.9) 04/28/20 06:02 Latimer # (Auto) 0.5 X10*3/uL (0.1-1.2) 04/28/20 06:02 Eos # (Auto) 0.5 X10*3/uL (0.0-0.4) H 04/28/20 06:02 Baso # (Auto) 0.1 X10*3/uL (0.0-0.2) 04/28/20 06:02 Abs Immat Gran (auto) 0.08 X10*3/uL (0.00-0.03) H 04/28/20 06:02 Absolute Neuts (auto) 3.6 X10*3/uL (2.0-8.3) 04/28/20 06:02 Absolute Nucleated RBC 0.000 X10*3/uL (0.0-0.012) 04/28/20 06:02 Nucleated RBC % (auto) 0.0 /100WBC (0.0-0.2) 04/28/20 06:02 Sodium 142 mmol/L (135-145) 04/28/20 06:02 Potassium 4.0 mmol/l (3.3-5.1) 04/28/20 06:02 Chloride 114 mmol/L (96-108) H 04/28/20 06:02 Carbon Dioxide 21 mmol/L (22-29) L 04/28/20 06:02 Anion Gap 11 (12-20) L 04/28/20 06:02 BUN 16 mg/dL (9-16) D 04/28/20 06:02 Creatinine 0.69 mg/dL (0.5-1.4) 04/28/20 06:02 Estim Creat Clear Calc 115.1 04/28/20 06:02 Estimated GFR > 60 04/28/20 06:02 Random Glucose 113 mg/dL (60-115) D 04/27/20 04:18 Fasting Glucose 87 mg/dL (60-99) 04/28/20 06:02 Lactic Acid 0.7 mmol/L (0.5-2.0) 04/26/20 01:42 Calcium 8.1 mg/dL (8.4-10.2) L 04/28/20 06:02 Urine Test NEGATIVE (NEGATIVE) 04/26/20 10:28 Vancomycin Trough 13.7 mcg/mL (10.0-20.0) 04/27/20 12:54 COVID-19 (VIDAL) Negative (Negative) 04/26/20 01:57 COVID-19 Clin Com See Note 04/26/20 01:57 Preliminary micro results at discharge 04/26/20 01:42 Blood Culture - Preliminary Blood - Venous No growth after 48 hours. 04/26/20 01:44 Blood Culture - Preliminary Blood - Venous No growth after 48 hours. Discharge Plan Discharge Patient Disposition: Home Health Service Referrals: Winnie Tello MD [Physician] - 1 Week Physician,Unknown [Primary Care Provider] - Discharge Medications: New amoxicillin-pot clavulanate [Augmentin] 875-125 mg tablet 1 tab PO BID Qty: 14 RF: 0 Continued meloxicam 15 mg tablet 1 tab PO DAILY RF: 0 clonazepam 0.5 mg tablet 1 tab PO TID RF: 0 gabapentin 300 mg capsule 2 cap PO TID RF: 0 topiramate 100 mg tablet 1 tab PO BID RF: 0 venlafaxine 225 mg tablet extended release 24hr 1 tab PO DAILY RF: 0 Vivitrol 380 mg Suspension,Extended Rel Recon 380 mg IM QMONTH RF: 0 cyclobenzaprine 10 mg Tablet 10 mg PO BEDTIME RF: 0 Discontinued clonidine HCl 0.1 mg tablet 1 tab PO BID RF: 0 Discharge Orders: Discharge Order (Routine); Ordered 04/28/20 Ordered By: Roge Lacey Diet: advance to usual diet Activity on Discharge: As tolerated Activity Restrictions/Additional Instructions: Daily dry sterile dressing to right breast. Cover area of dressing with plastic wrap to shower and replace dressing if it becomes wet. Visit Report Forms: Patient Portal Discharge page Care Plan Goals: recvovery Health Concerns: breast abscess Plan of Treatment: augmentin, stop clonidine for now, if bp increases would start different medication
--- NOTE | 2020-04-28 11:01 | MHC.CM.PN ---
PT DISCHARGING HOME WITH [facility] AND [facility] FOR DRESSING CHANGES AND DRAIN CARE, FAMILY TO TRANSPORT. PER PT REQUEST [facility] WILL START ON 04/30/20.
== END 2020-04-28 11:14 | disposition home health service (06) | DRG 572 ==
LOC: HO.ED 01:51 → HO.IMC 05:56 → HO.S3 14:05
PROVIDERS: Surgery; Admitting Provider Internal Medicine; Emergency Provider Emergency Medicine; Visit Provider Internal Medicine
DX: N61.1 Abscess of the breast and nipple (principal); G40.909 Epilepsy, unspecified, not intractable, without status epilepticus; I10 Essential (primary) hypertension; F17.210 Nicotine dependence, cigarettes, uncomplicated; Z71.6 Tobacco abuse counseling; Z98.1 Arthrodesis status; Z20.828 Contact with and (suspected) exposure to other viral communicable diseases; Z79.899 Other long term (current) drug therapy
CPT/HCPCS: 36415; 71260; 76642; 80048; 80202; 81025; 83605; 85025; 87040; 87071; 87073; 87147; 87186; 87205; 87635; 96361; 96365; 96367; 99024; 99284; 99285; J1100; J1885; J2250; J2405; J2543; J3010; J3370

== ENCOUNTER → 2020-05-03 08:52 | Outpatient (BNVA) | payer MEDICARE, MEDICAID, SELFPAY | PROVIDERS: PCP Nurse Practitioner Adult Health; Visit Provider Surgery | DX: N61.1 Abscess of the breast and nipple (principal); Z98.890 Other specified postprocedural states | CPT/HCPCS: 99212 ==

== ENCOUNTER 2021-12-04 11:28 | Inpatient (IN) | payer MEDICARE, MEDICAID, SELFPAY ==
[2021-12-04 11:36] VITALS: BP 119/75; PULSE 93; RESP 19; TEMP 36.7; O2SAT 98
[2021-12-04 11:38] VITALS: BP 138/80; PULSE 105; PULSE 118; RESP 18; O2SAT 100; O2SAT 99; BMI 33.0
[2021-12-04 12:03] LABS: Appearance Urine CLEAR; Color Urine STRAW; Glucose Urine UA NEG (NEG); Leukocyte Esterase Urine NEG (NEG); Nitrite Urine NEG (NEG); Specific Gravity - Urine <= 1.005 (1.005-1.025); Urine Blood NEG (NEG); Urine Ketones >=80 MG/DL (NEG); Urine Protein NEG (NEG-TRACE)
[2021-12-04 12:05] LABS: UPreg QC Valid YES; Urine Pregnancy NEGATIVE (NEGATIVE)
[2021-12-04 12:57] LABS: Amphetamine Screen Urine Not Detected (Not Detect); Barbiturates, Urine Not Detected (Not Detect); Benzodiazepines Screen Urine Not Detected (Not Detect); Cannabinoid Screen Urine POSITIVE (Not Detect); Cocaine Screen Urine Not Detected (Not Detect); Fentanyl, urine Not Detected (Not Detect); Opiate Screen Urine Not Detected (Not Detect); Phencyclidine Screen Urine Not Detected (Not Detect)
--- NOTE | 2021-12-04 13:00 | ED.PSYCH ---
HPI - Psych General Chief Complaint: Psychiatric Symptoms Stated Complaint: anxiety Time Seen by Provider: 12/04/21 11:40 Source: patient, EMS and other Mode of arrival: EMS History of Present Illness HPI Narrative: 36-year-old female is arriving via ambulance with behavioral referral for inpatient bed search from the community, she denies any suicidal or homicidal ideations and states that the person that she is scared of is not her and instead is her child's father only. Otherwise, patient does not wish to discuss things further as she is located in a hallway bed. On review of the Section 12 the brought the patient in it states that she was sent in for unspecified delusional disorder. And on review of specific behaviors in symptoms the sections states that patient is paranoid, delusional, thinks drinks are poisoned which causes her to throw up and appears to be tangential in thought process with pentecostalism preoccupation. She is noted to not be caring for herself. Related Data Home Medications Medication Instructions Recorded Confirmed gabapentin 300 mg capsule 2 cap PO TID 04/26/20 12/04/21 topiramate 100 mg tablet 1 tab PO BID 04/26/20 12/04/21 venlafaxine 225 mg tablet,extended 1 tab PO DAILY 04/26/20 12/04/21 release 24 hr Allergies Allergy/AdvReac Type Severity Reaction Status Date / Time No Known Allergies Allergy Verified 04/26/20 01:01 [No Known Allergies*] Review of Systems Review of Systems: Pertinent positives and negatives as stated in the HPI and otherwise ROS is limited due to patient unwilling to discuss matters further given her current location. [facility] Past Medical History Source: nursing notes reviewed Medical History Arthritis DJD (degenerative joint disease) Fibromyalgia Seizure Spinal stenosis Surgical History History of incision and drainage History of spinal fusion (2007) Family History Family History Maternal Grandmother History of cancer of unknown primary site Paternal Grandmother History of ovarian cancer History of lung cancer Paternal Grandfather History of prostate cancer Social History Social History Household Members: Children Housing: Apartment Are you a primary patient care specialist to a significant other at home: Yes Do you presently have visiting nurse or other home services: No Cigarette Packs Per Day: 0.5 Cigarettes Per Day: 10.0 Years Smoked: 15 Second Hand Smoke Exposure: No Advance Directives: Yes Advance Directives on File: Yes Advance Directives Date on File: 04/26/20 service: No Physical Exam Vital Signs: Vital Signs: Last Vital Signs Temp 98.1 F 12/04/21 11:36 Pulse 105 H 12/04/21 11:38 Resp 18 12/04/21 11:38 BP 119/75 12/04/21 11:36 Pulse Ox 100 12/04/21 11:38 O2 Del Method 12/04/21 11:38 BMI result Body Mass Index 33.0 VITAL SIGNS: Reviewed. GENERAL: Well developed, well nourished, in no acute distress. HEAD: Normocephalic/atraumatic EYES: PERRLA, EOMI EARS: Ext canals without abnormality OROPHARYNX: no oral lesions noted, posterior pharynx clear LUNGS: Normal breath sounds. No adventitious sounds or accessory muscle use. SpO2<100> CARDIOVASCULAR: Regular rate and rhythm without noted murmurs ABDOMEN: Soft, non-tender, non-distended with bowel sounds SKIN: Inspection of the skin reveals no rashes NEUROLOGIC: Alert and oriented x 4. Strength and sensation to light touch were grossly intact x 4, cranial nerves 2-12 grossly intact. PSYCH: Depressed affect, appears guarded Course Course Course Narrative: 36-year-old female with history and clinical presentation suggestive of unspecified delusional disorder, will obtain basic labs but patient is already Section 12 for bed search from the community. Patient is otherwise medically cleared for further placement and evaluation. Reevaluation(s) Reevaluation #1: Patient placed in physician observation because the patient needed more time for basic lab work and bed search. At the time observation was started the patient's vital signs were stable, patient is alert and oriented, neuro: Nonfocal, CV RRR, lungs clear Time: 14:43 MDM - Psych Lab Data Result diagrams: 12/04/21 15:21 12/04/21 15:22 Labs: Lab Results 12/04/21 12/04/21 12/04/21 Range/Units 11:55 11:55 11:55 WBC (4.8-10.8) X10*3/uL RBC (4.20-5.50) X10*6/uL Hgb (12.0-16.0) g/dl Hct (37.0-47.0) % MCV (80.0-98.0) fL MCH (27.0-33.0) pg MCHC (31.0-35.0) g/dl RDW (11.0-16.0) % Plt Count (160-400) X10*3/uL MPV (9.4-12.3) fL Immature Gran % (Auto) (0.0-0.4) % Neut % (Auto) (45-73) % Lymph % (Auto) (20-40) % [place] % (Auto) (2-11) % Eos % (Auto) (0-4) % Baso % (Auto) (0-2) % Lymph # (Auto) (1.2-4.9) X10*3/uL [place] # (Auto) (0.1-1.2) X10*3/uL Eos # (Auto) (0.0-0.4) X10*3/uL Baso # (Auto) (0.0-0.2) X10*3/uL Abs Immat Gran (auto) (0.00-0.03) X10*3/uL Absolute Neuts (auto) (2.0-8.3) x10*3/uL Absolute Nucleated RBC (0.0-0.012) X10*3/uL Nucleated RBC % (auto) (0.0-0.2) /100WBC Sodium (135-145) mmol/L Potassium (3.3-5.1) mmol/L Chloride (96-108) mmol/L Carbon Dioxide (22-29) mmol/L Anion Gap (12-20) BUN (9-16) mg/dL Creatinine (0.5-1.4) mg/dL Estim Creat Clear Calc Estimated GFR Random Glucose (60-115) mg/dL Calcium (8.4-10.2) mg/dL Total Bilirubin (0.0-1.0) mg/dL AST (5-31) U/L ALT (0-31) U/L Alkaline Phosphatase (39-117) U/L Total Protein (6.5-8.0) g/dL Albumin (3.5-5.0) g/dL Urine Color STRAW Urine Appearance CLEAR Urine pH 6.0 (5.0-8.0) Ur Specific [place] <= 1.005 (1.005-1.025) Urine Protein NEG (NEG-TRACE) MG/DL Urine Glucose (UA) NEG (NEG) MG/DL Urine Ketones >=80 (NEG) MG/DL Urine Blood NEG (NEG) Urine Nitrite NEG (NEG) Ur Leukocyte Esterase NEG (NEG) Urine Test NEGATIVE (NEGATIVE) Salicylates (15-30) mg/dL Urine Opiates Screen Not Detected (Not Detect) Urine Fentanyl Screen Not Detected (Not Detect) Acetaminophen (<30) mcg/mL Ur Barbiturates Screen Not Detected (Not Detect) Ur Phencyclidine Scrn Not Detected (Not Detect) Ur Amphetamines Screen Not Detected (Not Detect) U Benzodiazepines Scrn Not Detected (Not Detect) Urine Cocaine Screen Not Detected (Not Detect) U Marijuana (THC) Screen POSITIVE H (Not Detect) COVID-19 (VIDAL) (Negative) COVID-19 Clin Com 12/04/21 12/04/21 12/04/21 Range/Units 15:21 15:22 15:24 WBC 9.8 (4.8-10.8) X10*3/uL RBC 4.72 (4.20-5.50) X10*6/uL Hgb 13.9 (12.0-16.0) g/dl Hct 39.4 (37.0-47.0) % MCV 83.5 (80.0-98.0) fL MCH 29.4 (27.0-33.0) pg MCHC 35.3 H (31.0-35.0) g/dl RDW 12.0 (11.0-16.0) % Plt Count 337 (160-400) X10*3/uL MPV 10.8 (9.4-12.3) fL Immature Gran % (Auto) 0.2 (0.0-0.4) % Neut % (Auto) 66.2 (45-73) % Lymph % (Auto) 24.1 (20-40) % [place] % (Auto) 7.7 (2-11) % Eos % (Auto) 0.9 (0-4) % Baso % (Auto) 0.9 (0-2) % Lymph # (Auto) 2.4 (1.2-4.9) X10*3/uL [place] # (Auto) 0.8 (0.1-1.2) X10*3/uL Eos # (Auto) 0.1 (0.0-0.4) X10*3/uL Baso # (Auto) 0.1 (0.0-0.2) X10*3/uL Abs Immat Gran (auto) 0.02 (0.00-0.03) X10*3/uL Absolute Neuts (auto) 6.5 (2.0-8.3) x10*3/uL Absolute Nucleated RBC 0.000 (0.0-0.012) X10*3/uL Nucleated RBC % (auto) 0.0 (0.0-0.2) /100WBC Sodium 139 (135-145) mmol/L Potassium 3.4 (3.3-5.1) mmol/L Chloride 108 (96-108) mmol/L Carbon Dioxide 19 L (22-29) mmol/L Anion Gap 15 (12-20) BUN 8 L (9-16) mg/dL Creatinine 0.76 (0.5-1.4) mg/dL Estim Creat Clear Calc 101.5 Estimated GFR > 60 Random Glucose 106 (60-115) mg/dL Calcium 9.4 D (8.4-10.2) mg/dL Total Bilirubin 0.7 (0.0-1.0) mg/dL AST 34 H (5-31) U/L ALT 52 H (0-31) U/L Alkaline Phosphatase 50 (39-117) U/L Total Protein 8.0 (6.5-8.0) g/dL Albumin 4.7 (3.5-5.0) g/dL Urine Color Urine Appearance Urine pH (5.0-8.0) Ur Specific [place] (1.005-1.025) Urine Protein (NEG-TRACE) MG/DL Urine Glucose (UA) (NEG) MG/DL Urine Ketones (NEG) MG/DL Urine Blood (NEG) Urine Nitrite (NEG) Ur Leukocyte Esterase (NEG) Urine Test (NEGATIVE) Salicylates < 5.0 L (15-30) mg/dL Urine Opiates Screen (Not Detect) Urine Fentanyl Screen (Not Detect) Acetaminophen < 1 (<30) mcg/mL Ur Barbiturates Screen (Not Detect) Ur Phencyclidine Scrn (Not Detect) Ur Amphetamines Screen (Not Detect) U Benzodiazepines Scrn (Not Detect) Urine Cocaine Screen (Not Detect) U Marijuana (THC) Screen (Not Detect) COVID-19 (VIDAL) Negative (Negative) COVID-19 Clin Com See Note Discharge Plan Discharge Clinical Impression: Delusional disorder, Marijuana use Patient Disposition: Still a Patient Prescriptions: No Action gabapentin 300 mg capsule 2 cap PO TID topiramate 100 mg tablet 1 tab PO BID venlafaxine 225 mg tablet extended release 24hr 1 tab PO DAILY
--- NOTE | 2021-12-04 15:03 | PHA.MEDREC ---
Pharmacy Consult ? Medication Reconciliation Pharmacy has completed the medication reconciliation. Spoke to patient in person down in the ED. Patient states she hates taking gabapentin and will only take it if she really needs it.
--- NOTE | 2021-12-04 15:15 | PC.NURSE ---
Patient did not want to talk about what brought her to the hospital to this RN. States she does not want to talk about it because it is years of stuff and it is traumatizing . Denies SI/ HI and other psychiatric symptoms to this RN.
[2021-12-04 15:29] LABS: MANUAL DIFF FLAG NO
[2021-12-04 15:33] LABS: Basophils Absolute Auto 0.1 X10*3/uL (0.0-0.2); Basophils Percent Auto 0.9 % (0-2); Eosinophils Absolute Auto 0.1 X10*3/uL (0.0-0.4); Eosinophils Percent Auto 0.9 % (0-4); Hematocrit 39.4 % (37.0-47.0); Hemoglobin 13.9 g/dl (12.0-16.0); Imm Gran Abs Auto 0.02 X10*3/uL (0.00-0.03); Imm Gran Pct Auto 0.2 % (0.0-0.4); Lymphocytes Absolute Auto 2.4 X10*3/uL (1.2-4.9); Lymphocytes Percent Auto 24.1 % (20-40); Mean Corpuscular HGB Conc 35.3 g/dl (31.0-35.0); Mean Corpuscular Hemoglobin 29.4 pg (27.0-33.0); Mean Corpuscular Volume 83.5 fL (80.0-98.0); Mean Platelet Volume 10.8 fL (9.4-12.3); Monocytes Absolute Auto 0.8 X10*3/uL (0.1-1.2); Monocytes Percent Auto 7.7 % (2-11); Neutrophils Absolute Auto 6.5 x10*3/uL (2.0-8.3); Neutrophils Percent Auto 66.2 % (45-73); Platelet Count 337 X10*3/uL (160-400); Red Blood Count 4.72 X10*6/uL (4.20-5.50); White Blood Count 9.8 X10*3/uL (4.8-10.8)
[2021-12-04 15:46] LABS: COVID-19 Test Negative (Negative)
[2021-12-04 15:49] LABS: Alanine Aminotransferase 52 U/L (0-31); Albumin Level 4.7 g/dL (3.5-5.0); Alkaline Phosphatase 50 U/L (39-117); Anion Gap 15 (12-20); Aspartate Amino Transferase 34 U/L (5-31); Bilirubin Total 0.7 mg/dL (0.0-1.0); Blood Urea Nitrogen 8 mg/dL (9-16); Calcium 9.4 mg/dL (8.4-10.2); Carbon Dioxide 19 mmol/L (22-29); Chloride 108 mmol/L (96-108); Creatinine Clr Calc Pharmacy 101.5; Estimated Glomerular Filt Rate > 60; Glucose Random 106 mg/dL (60-115); Potassium 3.4 mmol/L (3.3-5.1); Sodium 139 mmol/L (135-145)
[2021-12-04 16:37] LABS: Acetaminophen LAB < 1 mcg/mL (<30); Salicylate < 5.0 mg/dL (15-30)
[2021-12-04 19:46] VITALS: BP 127/84; PULSE 88; RESP 16; TEMP 36.2; O2SAT 98
[2021-12-05] MEDS: Gabapentin 300 MG CAPSULE PO (02:38)
[2021-12-05] MEDS: Cyclobenzaprine HCl 10 MG TABLET PO ×2 (02:38→20:42)
[2021-12-05] MEDS: clonazePAM 0.5 MG TABLET PO ×4 (02:38→20:42)
[2021-12-05] MEDS: Topiramate 100 MG TABLET PO ×3 (02:38→20:43)
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
[2021-12-05 06:00] VITALS: BP 124/82; PULSE 91; RESP 18; TEMP 36.4; O2SAT 99
[2021-12-05] MEDS: Gabapentin 300 MG CAPSULE 600 MG PO ×3 (09:11→20:42)
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
[2021-12-05 18:00] VITALS: BP 112/69; PULSE 80; TEMP 36.7; O2SAT 98
[2021-12-06 06:00] VITALS: BP 138/81; PULSE 93; RESP 17; TEMP 36.5; O2SAT 99
[2021-12-06] MEDS: clonazePAM 0.5 MG TABLET PO ×3 (08:47→21:22)
[2021-12-06] MEDS: Venlafaxine HCl ER 75 MG CAP.ER.24H 225 MG PO (08:47)
[2021-12-06] MEDS: Cholecalciferol (Vitamin D3) 25 MCG TABLET 50 MCG PO (08:47)
[2021-12-06] MEDS: risperiDONE 0.5 MG TABLET PO (08:47)
[2021-12-06] MEDS: Topiramate 100 MG TABLET PO ×2 (08:47→21:22)
[2021-12-06] MEDS: Gabapentin 300 MG CAPSULE 600 MG PO ×3 (08:48→21:22)
[2021-12-06 10:27] LABS: Folate 10.9 ng/mL (> or = 4.0); Vitamin B12 680 pg/mL (200-900)
[2021-12-06] MEDS: Acetaminophen 325 MG TABLET 650 MG PO ×2 (12:13→18:59)
[2021-12-06 14:04] LABS: COVID-19 Test Negative (Negative)
[2021-12-06 14:08] LABS: Alanine Aminotransferase 36 U/L (0-31); Alkaline Phosphatase 41 U/L (39-117); Anion Gap 14 (12-20); Aspartate Amino Transferase 20 U/L (5-31); Bilirubin Total 0.4 mg/dL (0.0-1.0); Blood Urea Nitrogen 9 mg/dL (9-16); Calcium 9.2 mg/dL (8.4-10.2); Carbon Dioxide 21 mmol/L (22-29); Chloride 110 mmol/L (96-108); Cholesterol 106 mg/dL; Creatinine Clr Calc Pharmacy 102.9; Estimated Glomerular Filt Rate > 60; Glucose Fasting 96 mg/dL (60-99); HDL Cholesterol 35 mg/dL; LDL Cholesterol Calculated 62 mg/dl; Potassium 3.3 mmol/L (3.3-5.1); Sodium 142 mmol/L (135-145); Total Protein 6.7 g/dL (6.5-8.0); Triglycerides 45 mg/dL
[2021-12-06 14:10] LABS: Thyroid Stimulating Hormone 0.67 uIU/mL (0.32-4.0)
[2021-12-06 14:11] LABS: Estimated Average Glucose 88 mg/dL; Hemoglobin A1c % 4.7 %
[2021-12-06 18:00] VITALS: BP 110/86; PULSE 72; TEMP 36.3; O2SAT 98
[2021-12-06] MEDS: hydrOXYzine HCL 25 MG TABLET PO (18:58)
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
[2021-12-06] MEDS: risperiDONE 1 MG TABLET PO (21:22)
[2021-12-06] MEDS: Cyclobenzaprine HCl 10 MG TABLET PO (21:22)
[2021-12-07] MEDS: Gabapentin 300 MG CAPSULE 600 MG PO ×3 (09:25→21:06)
[2021-12-07] MEDS: Venlafaxine HCl ER 75 MG CAP.ER.24H 225 MG PO (09:25)
[2021-12-07] MEDS: Topiramate 100 MG TABLET PO ×2 (09:25→21:06)
[2021-12-07] MEDS: risperiDONE 1 MG TABLET PO ×2 (09:25→22:37)
[2021-12-07] MEDS: Cholecalciferol (Vitamin D3) 25 MCG TABLET 50 MCG PO (09:26)
[2021-12-07] MEDS: clonazePAM 0.5 MG TABLET PO ×3 (09:26→21:06)
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
[2021-12-07] MEDS: Acetaminophen 325 MG TABLET 650 MG PO (17:04)
[2021-12-07 17:53] VITALS: BP 110/80; PULSE 83; RESP 18; TEMP 36.4; O2SAT 99
[2021-12-07] MEDS: Cyclobenzaprine HCl 10 MG TABLET PO (21:05)
[2021-12-07] MEDS: hydrOXYzine HCL 25 MG TABLET PO (21:05)
[2021-12-08 08:30] VITALS: BP 113/67; PULSE 89; TEMP 37.9
[2021-12-08] MEDS: Gabapentin 300 MG CAPSULE 600 MG PO ×3 (09:04→19:22)
[2021-12-08] MEDS: Topiramate 100 MG TABLET PO ×2 (09:04→19:21)
[2021-12-08] MEDS: risperiDONE 1 MG TABLET PO ×2 (09:04→19:21)
[2021-12-08] MEDS: clonazePAM 0.5 MG TABLET PO ×3 (09:04→19:21)
[2021-12-08] MEDS: Venlafaxine HCl ER 75 MG CAP.ER.24H 225 MG PO (09:04)
[2021-12-08] MEDS: Acetaminophen 325 MG TABLET 650 MG PO ×2 (09:04→19:06)
[2021-12-08] MEDS: Cholecalciferol (Vitamin D3) 25 MCG TABLET 50 MCG PO (09:05)
[2021-12-08 09:58] LABS: COVID-19 Test Negative (Negative); IDNOW Serial# 9DD0AD1C
[2021-12-08 13:15] VITALS: TEMP 37.4
--- NOTE | 2021-12-08 17:05 | HO.PSYCHPN ---
Subjective Subjective Date of Service: 12/08/21 Reason For Visit: psychosis Subjective Notes: Conditional Voluntary Healthcare Proxy: No Guardianship: No Medical Problems Affecting Mental Status: No Interim History: Pt with a temp of 100.2; 99.4 and 97.8 by evening. Slept most of the day No formal discussion with pt today-she reports exhaustion and not feeling well. On one to one in quarantine in case she needs anything Team reports she is eating, drinking and making needs known Team is offering supportive care while she works through this medical symptom. No medicine changes at this time. Medication Compliance: Yes Side effects from medications: No Attending Groups: No Review of Systems Acute medical concerns: No Medical Review of Systems: unchanged Review of Systems Constitutional: Reports fatigue, Reports fever(s) and Reports lethargy Endocrine: Reports fatigue Mental Status Exam Mental Status Exam Patient Orientation: Person, Place, Time and Situation Level of Consciousness: Awake, Drowsy and Alert Patient Behavior: Appropriate, Talkative and Cooperative Mood Description: Flat Affect Description: Flat Patient Cognition Impaired: No Ability to Follow Directions: Good Speech Pattern: Spontaneous Speech Memory Description: Intact Hallucinations: None Delusions: Not Present Perceptual Disturbances: Depersonalization and Derealization Thought Process: Intact Thought Content: positive for Intact Depressive Symptoms: Sleeping More Than Usual Judgement: Fair Diagnostics Vital Signs (24Hr): Vital Signs - 24 hr 12/07/21 17:53 12/08/21 08:30 12/08/21 13:15 Temperature 97.5 F 100.2 F 99.4 F Pulse Rate 83 89 Respiratory Rate 18 Blood Pressure 110/80 113/67 Pulse Oximetry 99 Oxygen Delivery Method Room Air BMI result Body Mass Index 0.0 Labs Results: 12/04/21 15:21 12/06/21 08:50 Labs: Laboratory Results - last 48 hr 12/08/21 09:14 COVID-19 (VIDAL) Negative COVID-19 Clin Com See Note Medications Medications Current Medications Acetaminophen (Acetaminophen 325 Mg Tablet) 650 mg PO Q6H PRN PRN Reason: Headache/Pain Mild Scale (1-3) Last Admin: 12/08/21 09:04 Dose: 650 mg Al Hydroxide/Mg Hydroxide (Magnesium Hydrox/Alum Hydrox 30 Ml Oral.Susp) 30 ml PO Q6H PRN PRN Reason: Heartburn/Nausea Clonazepam (Clonazepam 0.5 Mg Tablet) 0.5 mg PO TID [facility] Last Admin: 12/08/21 15:50 Dose: 0.5 mg Cyclobenzaprine HCl (Cyclobenzaprine Hcl 10 Mg Tablet) 10 mg PO BEDTIME [facility] Last Admin: 12/07/21 21:05 Dose: 10 mg Gabapentin (Gabapentin 300 Mg Capsule) 600 mg PO TID [facility] Last Admin: 12/08/21 15:50 Dose: 600 mg Hydroxyzine HCl (Hydroxyzine Hcl 25 Mg Tablet) 25 mg PO Q6H PRN PRN Reason: Anxiety Last Admin: 12/07/21 21:05 Dose: 25 mg Magnesium Hydroxide (Milk Of Magnesia 30 Ml Oral.Susp) 30 ml PO DAILY PRN PRN Reason: Constipation Nicotine Polacrilex (Nicotine Polacrilex 2 Mg Gum) 2 mg BUCCAL Q2H PRN PRN Reason: Nicotine Cravings Olanzapine (Olanzapine 5 Mg Tablet) 5 mg PO Q4H PRN PRN Reason: agitation/insomnia Pharmacy Consult (Consult Rx Perform Med Rec) 1 each MISCELLANE ONCE PRN PRN Reason: Consult order Risperidone (Risperidone 1 Mg Tablet) 1 mg PO BID [facility] Last Admin: 12/08/21 09:04 Dose: 1 mg Topiramate (Topiramate 100 Mg Tablet) 100 mg PO BID [facility] Last Admin: 12/08/21 09:04 Dose: 100 mg Trazodone HCl (Trazodone Hcl 50 Mg Tablet) 50 mg PO BEDTIME PRN PRN Reason: Insomnia Venlafaxine HCl (Venlafaxine Hcl Er 75 Mg Cap.Er.24h) 225 mg PO DAILY [facility] Last Admin: 12/08/21 09:04 Dose: 225 mg Vitamin D (Cholecalciferol (Vitamin D3) 25 Mcg Tablet) 50 mcg PO DAILY [facility] Last Admin: 12/08/21 09:05 Dose: 50 mcg Allergies Allergies Allergy/AdvReac Type Severity Reaction Status Date / Time No Known Allergies Allergy Verified 04/26/20 01:01 [No Known Allergies*] Assessment & Plan Assessment & Plan (1) PTSD (post-traumatic stress disorder): Status: Acute Code(s): F43.10 - Post-traumatic stress disorder, unspecified (2) Mood disorder: Status: Acute Code(s): F39 - Unspecified mood [affective] disorder (3) Marijuana use: Status: Acute Code(s): F12.90 - Cannabis use, unspecified, uncomplicated Plan 36 yo female, hx of PTSD, sober 3 years, uses cannabis for anxiety with recent exacerbation of PTSD sx with psychotic sx and mood lability triggered by fear of ex (daughter's father). Plan: Continue current regime. Restart Venlafaxine-monitor and taper if needed. Pt has been compliant at home Risperdal 0.5 mg bid-to assist with sx mgt grounding 12/08/21 COVID-19 negative with temp 100.2; 99.4 and 97.8 throughout the day and reports of feeling ill. Continue to monitor No medication changes at this time Pt on one to one for extended support. I spent minutes with the patient and/or on the patient floor today, greater than?50% of which was spent counseling/coordinating care. Patient educated on: other Informed Consent: understands Reason for contiued inpatient stay Substantial Risk for: inability to function and rapid decompensation
[2021-12-08 18:00] VITALS: BP 116/76; PULSE 88; RESP 16; TEMP 36.6; O2SAT 97
[2021-12-08] MEDS: Cyclobenzaprine HCl 10 MG TABLET PO (19:22)
[2021-12-08] MEDS: traZODone HCL 50 MG TABLET PO (19:54)
[2021-12-08] MEDS: Nicotine Polacrilex 2 MG GUM BUCCAL (19:54)
[2021-12-09 06:00] VITALS: BP 114/71; PULSE 84; RESP 18; TEMP 36.4; O2SAT 98
[2021-12-09] MEDS: Acetaminophen 325 MG TABLET 650 MG PO ×2 (08:11→20:09)
[2021-12-09] MEDS: Cholecalciferol (Vitamin D3) 25 MCG TABLET 50 MCG PO (08:11)
[2021-12-09] MEDS: Topiramate 100 MG TABLET PO ×2 (08:12→20:10)
[2021-12-09] MEDS: clonazePAM 0.5 MG TABLET PO ×3 (08:12→20:10)
[2021-12-09] MEDS: Venlafaxine HCl ER 75 MG CAP.ER.24H 225 MG PO (08:12)
[2021-12-09] MEDS: Gabapentin 300 MG CAPSULE 600 MG PO ×2 (08:12→20:10)
[2021-12-09] MEDS: risperiDONE 1 MG TABLET PO ×2 (08:12→20:11)
[2021-12-09 11:17] LABS: COVID-19 Test Positive (Negative); IDNOW Serial# 08D9AD1C
[2021-12-09 18:00] VITALS: BP 107/62; PULSE 78; TEMP 36.6; O2SAT 100
[2021-12-09] MEDS: Cyclobenzaprine HCl 10 MG TABLET PO (20:10)
[2021-12-09] MEDS: Mirtazapine 7.5 MG TABLET PO (20:11)
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
[2021-12-10 06:00] VITALS: BP 109/60; PULSE 77; TEMP 36.6; O2SAT 100
[2021-12-10] MEDS: Venlafaxine HCl ER 75 MG CAP.ER.24H 225 MG PO (08:30)
[2021-12-10] MEDS: Gabapentin 300 MG CAPSULE 600 MG PO ×2 (08:31→19:45)
[2021-12-10] MEDS: risperiDONE 1 MG TABLET PO ×2 (08:31→19:45)
[2021-12-10] MEDS: Cholecalciferol (Vitamin D3) 25 MCG TABLET 50 MCG PO (08:31)
[2021-12-10] MEDS: clonazePAM 0.5 MG TABLET PO ×3 (08:31→19:45)
[2021-12-10] MEDS: Topiramate 100 MG TABLET PO ×2 (08:32→19:45)
--- NOTE | 2021-12-10 13:00 | P.PNPSI_ITS ---
Subjective Subjective Date of Service: 12/10/21 Reason For Visit: psychosis Subjective Notes: Conditional Voluntary Interim History: COVID positive noted. Otherwise reports feeling tired. Hopeful that treatment can help with PTSD symptoms. Has been in recovery for 3 years and reports having support with sponsor around recovery specialist. [place] reassured by treatment plan. Sleep okay. No SI. No psychosis. Medication Compliance: Yes Side effects from medications: No Attending Groups: No Review of Systems Acute medical concerns: No COVID positive. Mild symptoms. Mental Status Exam Mental Status Exam Narrative: Pleasant. Engaged. Organized. Is anxious. No SI. No HI. No psychosis. Insight and judgment okay Diagnostics Vital Signs (24Hr): Vital Signs - 24 hr 12/09/21 18:00 12/10/21 06:00 Temperature 97.9 F 97.8 F Pulse Rate 78 77 Blood Pressure 107/62 109/60 Pulse Oximetry 100 100 Oxygen Delivery Method Room Air BMI result Body Mass Index 0.0 Labs Results: 12/04/21 15:21 12/06/21 08:50 Labs: Laboratory Results - last 48 hr 12/09/21 10:44 COVID-19 (VIDAL) Positive A COVID-19 Clin Com See Note Medications Medications Current Medications Acetaminophen (Acetaminophen 325 Mg Tablet) 650 mg PO Q6H PRN PRN Reason: Headache/Pain Mild Scale (1-3) Last Admin: 12/09/21 20:09 Dose: 650 mg Al Hydroxide/Mg Hydroxide (Magnesium Hydrox/Alum Hydrox 30 Ml Oral.Susp) 30 ml PO Q6H PRN PRN Reason: Heartburn/Nausea Clonazepam (Clonazepam 0.5 Mg Tablet) 0.5 mg PO TID [facility] Last Admin: 12/10/21 08:31 Dose: 0.5 mg Cyclobenzaprine HCl (Cyclobenzaprine Hcl 10 Mg Tablet) 10 mg PO BEDTIME [facility] Last Admin: 12/09/21 20:10 Dose: 10 mg Gabapentin (Gabapentin 300 Mg Capsule) 600 mg PO BID [facility] Last Admin: 12/10/21 08:31 Dose: 600 mg Hydroxyzine HCl (Hydroxyzine Hcl 25 Mg Tablet) 25 mg PO Q6H PRN PRN Reason: Anxiety Last Admin: 12/07/21 21:05 Dose: 25 mg Magnesium Hydroxide (Milk Of Magnesia 30 Ml Oral.Susp) 30 ml PO DAILY PRN PRN Reason: Constipation Mirtazapine (Mirtazapine 7.5 Mg Tablet) 7.5 mg PO BEDTIME [facility] Last Admin: 12/09/21 20:11 Dose: 7.5 mg Nicotine Polacrilex (Nicotine Polacrilex 2 Mg Gum) 2 mg BUCCAL Q2H PRN PRN Reason: Nicotine Cravings Last Admin: 12/08/21 19:54 Dose: 2 mg Olanzapine (Olanzapine 5 Mg Tablet) 5 mg PO Q4H PRN PRN Reason: agitation/insomnia Pharmacy Consult (Consult Rx Perform Med Rec) 1 each MISCELLANE ONCE PRN PRN Reason: Consult order Risperidone (Risperidone 1 Mg Tablet) 1 mg PO BID [facility] Last Admin: 12/10/21 08:31 Dose: 1 mg Topiramate (Topiramate 100 Mg Tablet) 100 mg PO BID [facility] Last Admin: 12/10/21 08:32 Dose: 100 mg Trazodone HCl (Trazodone Hcl 50 Mg Tablet) 50 mg PO BEDTIME PRN PRN Reason: Insomnia Last Admin: 12/08/21 19:54 Dose: 50 mg Venlafaxine HCl (Venlafaxine Hcl Er 75 Mg Cap.Er.24h) 225 mg PO DAILY [facility] Last Admin: 12/10/21 08:30 Dose: 225 mg Vitamin D (Cholecalciferol (Vitamin D3) 25 Mcg Tablet) 50 mcg PO DAILY [facility] Last Admin: 12/10/21 08:31 Dose: 50 mcg Allergies Allergies Allergy/AdvReac Type Severity Reaction Status Date / Time No Known Allergies Allergy Verified 04/26/20 01:01 [No Known Allergies*] Assessment & Plan Assessment & Plan (1) PTSD (post-traumatic stress disorder): Status: Acute Code(s): F43.10 - Post-traumatic stress disorder, unspecified (2) Mood disorder: Status: Acute Code(s): F39 - Unspecified mood [affective] disorder (3) Marijuana use: Status: Acute Code(s): F12.90 - Cannabis use, unspecified, uncomplicated Plan 36 yo female, hx of PTSD, sober 3 years, uses cannabis for anxiety with recent exacerbation of PTSD sx with psychotic sx and mood lability triggered by fear of ex (daughter's father). Plan: Continue current regime. Restart Venlafaxine-monitor and taper if needed. Pt has been compliant at home Risperdal 0.5 mg bid-to assist with sx mgt grounding 12/08/21 COVID-19 negative with temp 100.2; 99.4 and 97.8 throughout the day and reports of feeling ill. Continue to monitor No medication changes at this time Pt on one to one for extended support. 12/10/2021: COVID positive. No changes to current treatment plan. I spent minutes with the patient and/or on the patient floor today, greater than?50% of which was spent counseling/coordinating care. Reason for contiued inpatient stay Substantial Risk for: rapid decompensation
[2021-12-10] MEDS: Acetaminophen 325 MG TABLET 650 MG PO (13:10)
[2021-12-10 16:29] VITALS: BP 125/77; PULSE 75; TEMP 36.6
[2021-12-10] MEDS: Mirtazapine 7.5 MG TABLET PO (19:45)
[2021-12-10] MEDS: Cyclobenzaprine HCl 10 MG TABLET PO (19:45)
[2021-12-11 08:00] VITALS: BP 124/76; PULSE 88; RESP 14; TEMP 36.6; O2SAT 98
[2021-12-11] MEDS: clonazePAM 0.5 MG TABLET PO ×3 (08:21→21:36)
[2021-12-11] MEDS: risperiDONE 1 MG TABLET PO ×2 (08:21→21:35)
[2021-12-11] MEDS: Topiramate 100 MG TABLET PO ×2 (08:21→23:16)
[2021-12-11] MEDS: Venlafaxine HCl ER 75 MG CAP.ER.24H 225 MG PO (08:21)
[2021-12-11] MEDS: Cholecalciferol (Vitamin D3) 25 MCG TABLET 50 MCG PO (08:21)
[2021-12-11] MEDS: Gabapentin 300 MG CAPSULE 600 MG PO ×2 (08:21→21:34)
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
[2021-12-11 18:00] VITALS: BP 112/59; PULSE 77; TEMP 36.3
[2021-12-11] MEDS: Acetaminophen 325 MG TABLET 650 MG PO (21:33)
[2021-12-11] MEDS: Mirtazapine 7.5 MG TABLET PO (21:35)
[2021-12-11] MEDS: Cyclobenzaprine HCl 10 MG TABLET PO (21:35)
[2021-12-12] MEDS: Cholecalciferol (Vitamin D3) 25 MCG TABLET 50 MCG PO (09:00)
[2021-12-12] MEDS: risperiDONE 1 MG TABLET PO ×2 (09:00→19:56)
[2021-12-12] MEDS: clonazePAM 0.5 MG TABLET PO ×3 (09:00→19:56)
[2021-12-12] MEDS: Topiramate 100 MG TABLET PO ×2 (09:00→19:56)
[2021-12-12] MEDS: Venlafaxine HCl ER 75 MG CAP.ER.24H 225 MG PO (09:00)
[2021-12-12] MEDS: Gabapentin 300 MG CAPSULE 600 MG PO ×2 (09:00→19:56)
[2021-12-12 11:50] VITALS: BP 97/56; PULSE 79; RESP 16; TEMP 36.5; O2SAT 98
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
[2021-12-12 18:00] VITALS: BP 108/67; PULSE 78; RESP 16; TEMP 36.1; O2SAT 99
[2021-12-12] MEDS: Mirtazapine 7.5 MG TABLET PO (19:55)
[2021-12-12] MEDS: Cyclobenzaprine HCl 10 MG TABLET PO (19:55)
[2021-12-12] MEDS: Nicotine Polacrilex 2 MG GUM BUCCAL (20:23)
[2021-12-12] MEDS: traZODone HCL 50 MG TABLET PO (20:23)
[2021-12-13 08:40] VITALS: BP 103/73; PULSE 76; RESP 18; TEMP 36.3; O2SAT 100
[2021-12-13] MEDS: risperiDONE 1 MG TABLET PO ×2 (08:51→20:20)
[2021-12-13] MEDS: Topiramate 100 MG TABLET PO ×2 (08:51→20:23)
[2021-12-13] MEDS: Gabapentin 300 MG CAPSULE 600 MG PO ×2 (08:51→20:20)
[2021-12-13] MEDS: Cholecalciferol (Vitamin D3) 25 MCG TABLET 50 MCG PO (08:51)
[2021-12-13] MEDS: Venlafaxine HCl ER 75 MG CAP.ER.24H 225 MG PO (08:51)
[2021-12-13] MEDS: clonazePAM 0.5 MG TABLET PO ×3 (08:51→20:20)
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
[2021-12-13] MEDS: Fluticasone Propionate Nasal 16 GM SPRAY 2 SPRAY NOSTRIL-B (14:24)
[2021-12-13 18:00] VITALS: BP 138/77; PULSE 76; TEMP 36.6
--- NOTE | 2021-12-13 18:08 | P.PNPSI_ITS ---
Subjective Subjective Date of Service: 12/13/21 Reason For Visit: psychosis Subjective Notes: Conditional Voluntary Healthcare Proxy: No Guardianship: No Medical Problems Affecting Mental Status: No Interim History: Discussed ending quarantine on 12/14. Asks for discharge-she would like to attend a zoom training for work on 12/15. Reports she would like to do milieu groups in the a.m. on 12/14 and spend the afternoon with her mother and daughter to reconnect. Reports feeling improved, tolerating regime and finding it useful. Medication Compliance: Yes Side effects from medications: No Attending Groups: Yes Review of Systems Acute medical concerns: No COVID-19 quarantine has ended. Medical Review of Systems: unchanged Review of Systems Psychiatric: Reports no additional psychiatric complaints Mental Status Exam Mental Status Exam Patient Appearance: Appropriate Patient Orientation: Person, Place, Time and Situation Level of Consciousness: Alert Patient Behavior: Appropriate, Talkative, Cooperative and Good Eye Contact Mood Description: Appropriate Affect Description: Appropriate Patient Cognition Impaired: No Ability to Follow Directions: Good Speech Pattern: Spontaneous Speech Memory Description: Intact Hallucinations: None Delusions: Not Present Perceptual Disturbances: Depersonalization Thought Process: Intact and Goal Oriented Thought Content: positive for Intact and positive for Goal Oriented Judgement: Good Diagnostics Vital Signs (24Hr): Vital Signs - 24 hr 12/13/21 08:40 Temperature 97.4 F Pulse Rate 76 Respiratory Rate 18 Blood Pressure 103/73 Pulse Oximetry 100 Oxygen Delivery Method Room Air BMI result Body Mass Index 0.0 Labs Results: 12/04/21 15:21 12/06/21 08:50 Medications Medications Current Medications Acetaminophen (Acetaminophen 325 Mg Tablet) 650 mg PO Q6H PRN PRN Reason: Headache/Pain Mild Scale (1-3) Last Admin: 12/11/21 21:33 Dose: 650 mg Al Hydroxide/Mg Hydroxide (Magnesium Hydrox/Alum Hydrox 30 Ml Oral.Susp) 30 ml PO Q6H PRN PRN Reason: Heartburn/Nausea Clonazepam (Clonazepam 0.5 Mg Tablet) 0.5 mg PO TID [facility] Last Admin: 12/13/21 14:10 Dose: 0.5 mg Cyclobenzaprine HCl (Cyclobenzaprine Hcl 10 Mg Tablet) 10 mg PO BEDTIME [facility] Last Admin: 12/12/21 19:55 Dose: 10 mg Fluticasone Propionate (Fluticasone Propionate Nasal 16 Gm Downey) 2 spray NOSTRIL-B DAILY PRN PRN Reason: congestion and right ear pain Last Admin: 12/13/21 14:24 Dose: 2 spray Gabapentin (Gabapentin 300 Mg Capsule) 600 mg PO BID [facility] Last Admin: 12/13/21 08:51 Dose: 600 mg Hydroxyzine HCl (Hydroxyzine Hcl 25 Mg Tablet) 25 mg PO Q6H PRN PRN Reason: Anxiety Last Admin: 12/07/21 21:05 Dose: 25 mg Magnesium Hydroxide (Milk Of Magnesia 30 Ml Oral.Susp) 30 ml PO DAILY PRN PRN Reason: Constipation Mirtazapine (Mirtazapine 7.5 Mg Tablet) 7.5 mg PO BEDTIME [facility] Last Admin: 12/12/21 19:55 Dose: 7.5 mg Nicotine Polacrilex (Nicotine Polacrilex 2 Mg Gum) 2 mg BUCCAL Q2H PRN PRN Reason: Nicotine Cravings Last Admin: 12/12/21 20:23 Dose: 2 mg Olanzapine (Olanzapine 5 Mg Tablet) 5 mg PO Q4H PRN PRN Reason: agitation/insomnia Pharmacy Consult (Consult Rx Perform Med Rec) 1 each MISCELLANE ONCE PRN PRN Reason: Consult order Risperidone (Risperidone 1 Mg Tablet) 1 mg PO BID [facility] Last Admin: 12/13/21 08:51 Dose: 1 mg Topiramate (Topiramate 100 Mg Tablet) 100 mg PO BID [facility] Last Admin: 12/13/21 08:51 Dose: 100 mg Trazodone HCl (Trazodone Hcl 50 Mg Tablet) 50 mg PO BEDTIME PRN PRN Reason: Insomnia Last Admin: 12/12/21 20:23 Dose: 50 mg Venlafaxine HCl (Venlafaxine Hcl Er 75 Mg Cap.Er.24h) 225 mg PO DAILY [facility] Last Admin: 12/13/21 08:51 Dose: 225 mg Vitamin D (Cholecalciferol (Vitamin D3) 25 Mcg Tablet) 50 mcg PO DAILY [facility] Last Admin: 12/13/21 08:51 Dose: 50 mcg Allergies Allergies Allergy/AdvReac Type Severity Reaction Status Date / Time No Known Allergies Allergy Verified 04/26/20 01:01 [No Known Allergies*] Assessment & Plan Assessment & Plan (1) Serous otitis media: Status: Acute Code(s): H65.90 - Unspecified nonsuppurative otitis media, unspecified ear (2) COVID-19: Status: Acute Code(s): U07.1 - COVID-19 Plan 36 year old female with history of mood disorder unspecified, psychosis, PTSD admitted to psychiatry for psychosis and mood lability being evaluated by hospitalist team for right ear pain and COVID 19 diagnosed 12/09 in fully vaccinated patient. 1- Acute serous otitis media -secondary to COVID-19 infection -Unlikely bacteria otitis media given recent covid-19 infection -Fluticasone for decreased congestion and pressure -Tylenol as needed for pain 2-COVID-19- resolving -mild symptoms improving -Continue isolation per CDC Thank you for allowing me to participate in this consult. Signing off at this time. Please do not hesitate to call for further questions. 12/13/21- Discharge 12/14/21. Continue current regime. I spent minutes with the patient and/or on the patient floor today, greater than?50% of which was spent counseling/coordinating care. Patient educated on: therapeutic strategies Informed Consent: understands Reason for contiued inpatient stay Substantial Risk for: rapid decompensation
[2021-12-13] MEDS: Cyclobenzaprine HCl 10 MG TABLET PO (20:21)
[2021-12-13] MEDS: Mirtazapine 7.5 MG TABLET PO (20:23)
[2021-12-14 06:00] VITALS: BP 120/78; PULSE 77; RESP 18; TEMP 36.9; O2SAT 99
[2021-12-14] MEDS: risperiDONE 1 MG TABLET PO (08:53)
[2021-12-14] MEDS: Cholecalciferol (Vitamin D3) 25 MCG TABLET 50 MCG PO (08:53)
[2021-12-14] MEDS: Topiramate 100 MG TABLET PO (08:53)
[2021-12-14] MEDS: Gabapentin 300 MG CAPSULE 600 MG PO (08:53)
[2021-12-14] MEDS: Venlafaxine HCl ER 75 MG CAP.ER.24H 225 MG PO (08:53)
--- NOTE | 2021-12-14 15:09 | P.DS_ITS ---
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 Has provider been notified: No 12/12/21 15:54 Consult to Hospitalist Routine Consulting Provider: Hospitalist Reason For Exam: R Ear Pain (COVID +) Otoscope on M5 not working Attending physician on discharge: Trever Morelos Discharging clinician: Khushbu Townsend DS: Diagnosis Discharge Diagnosis (1) Serous otitis media: Status: Resolved (2) COVID-19: Status: Resolved (3) PTSD (post-traumatic stress disorder): Status: Acute DS: Medications Discharge Medications Home Medications: Home Medications Medication Instructions Recorded Confirmed topiramate 100 mg tablet 1 tab PO BID 04/26/20 12/04/21 venlafaxine 225 mg tablet,extended 1 tab PO DAILY 04/26/20 12/04/21 release 24 hr Previous Rx's Medication Instructions Recorded cholecalciferol (vitamin D3) 25 50 mcg PO DAILY #30 tabs 12/14/21 mcg (1,000 unit) tablet cyclobenzaprine 10 mg tablet 10 mg PO BEDTIME #30 tabs 12/14/21 fluticasone propionate 50 2 spray intranasal DAILY PRN 12/14/21 mcg/actuation nasal congestion and right ear pain #1 spray,suspension inhaler gabapentin 600 mg tablet 600 mg PO BID #60 tabs 12/14/21 mirtazapine 7.5 mg tablet 7.5 mg PO BEDTIME #30 tabs 12/14/21 risperidone 1 mg tablet 1 mg PO BID #60 tabs 12/14/21 trazodone 50 mg tablet 50 mg PO BEDTIME PRN Insomnia #30 12/14/21 tabs venlafaxine 75 mg capsule,extended 225 mg PO DAILY #0 caps 12/14/21 release 24 hr Mental Status Exam Mental Status Exam Patient Appearance: Appropriate Patient Orientation: Person, Place, Time and Situation Level of Consciousness: Alert Patient Behavior: Appropriate, Talkative, Cooperative and Good Eye Contact Mood Description: Appropriate Affect Description: Appropriate Patient Cognition Impaired: No Ability to Follow Directions: Good Speech Pattern: Spontaneous Speech Memory Description: Intact Hallucinations: None Delusions: Not Present Perceptual Disturbances: Depersonalization Thought Process: Intact and Goal Oriented Thought Content: positive for Intact and positive for Goal Oriented Judgement: Good Data Data Completed and Pending Completed studies during hospitalization [Text1]: 12/08/21 12/09/21 09:14 10:44 COVID-19 (VIDAL) Negative Positive A COVID-19 Clin Com See Note See Note DS: Summary Hospital Course Hospital Course: Admission to adult psychiatry for exacerbation of PTSD. 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 Pt found to be COVID positive during admit with some active symptoms and need for quarantine. Remeron, Risperdal, Trazodone were added to regime.Gabapentin, Venlafaxine and Topiramate were adjusted. Pt able to resolve COVID sx and discharged to home feeling improved. Time spent discussing smoking cessation with patient: 3 to 10 minutes Status at Discharge Functional status at discharge: independent ambulation Overall status at discharge: patient is back to baseline Time Spent with Patient Time attestation: Total time spent providing and/or coordinating discharge services: 40 Time spent: Greater than 30 minutes Discharge Plan Discharge Patient Disposition: Home, Self-Care Discharge Diagnosis: PTSD [id number] Otitis Media -resolved Referrals: Therapy Intake: Darryl Marcelino ([facility]) [Other] - 12/20/21 4:00 pm (In person at the office ) Psych Prescriber: Jayne Daniel ([facility]) [Other] - 01/11/22 2:40 pm (In-person at the office ) Psych Prescriber: Jayne Daniel ([facility]) [Other] - 02/06/22 1:20 pm (In person at the office ) DCF [employer] Journeyman: Lexi Richardson [Other] - 1 Week (Call her within the next day or two to discuss open case and next steps. ) Susan Heredia NP [Primary Care Provider] - 1 Week ('s office will call sometime this week with appointment time. ) Discharge Medications: New cyclobenzaprine 10 mg Tablet 10 mg PO BEDTIME Qty: 30 0RF venlafaxine 75 mg Capsule,Extended Release 24hr 225 mg PO DAILY Qty: 0 0RF trazodone 50 mg Tablet 50 mg PO BEDTIME PRN (Reason: Insomnia) Qty: 30 0RF fluticasone propionate 50 mcg/actuation [place],Suspension 2 spray intranasal DAILY PRN (Reason: congestion and right ear pain) Qty: 1 0RF risperidone 1 mg Tablet 1 mg PO BID Qty: 60 0RF mirtazapine 7.5 mg Tablet 7.5 mg PO BEDTIME Qty: 30 0RF cholecalciferol (vitamin D3) 25 mcg (1,000 unit) Tablet 50 mcg PO DAILY Qty: 30 0RF gabapentin 600 mg tablet 600 mg PO BID Qty: 60 0RF Continued topiramate 100 mg tablet 1 tab PO BID venlafaxine 225 mg tablet extended release 24hr 1 tab PO DAILY Discontinued gabapentin 300 mg capsule 2 cap PO TID Discharge Orders: Discharge Order (Routine); Ordered 12/14/21 Ordered By: Khushbu Townsend Diet: Advance to usual diet Activity on Discharge: As tolerated Stand Alone Forms: Patient Portal Discharge page, Community Support Care Plan Goals: Mood stabilization Health Concerns: PTSD Plan of Treatment: Attend follow up appointments Take medications as directed Assessment: non psychotic, non suicidal Discharge Date/Time: 12/14/21 12:00
== END 2021-12-14 12:00 | disposition home or self-care (01) | DRG 882 ==
LOC: HO.ED 17:31 → HO.PM5 12-05 00:59
PROVIDERS: Psychiatry & Neurology Psychiatry; Registered Nurse; Admitting Provider Psychiatry & Neurology Psychiatry; Emergency Provider Student in an Organized Health Care Education/Training Program; PCP Nurse Practitioner Adult Health; Visit Provider Clinical Nurse Specialist Psychiatric/Mental Health, Adult
DX: F43.10 Post-traumatic stress disorder, unspecified (principal); U07.1 COVID-19; F39 Unspecified mood [affective] disorder; H65.01 Acute serous otitis media, right ear; M79.7 Fibromyalgia; Z98.1 Arthrodesis status; Z79.51 Long term (current) use of inhaled steroids; Z79.899 Other long term (current) drug therapy
CPT/HCPCS: 36415; 80053; 80061; 80143; 80179; 80307; 81003; 81025; 82607; 82746; 83036; 84443; 85025; 87635; 99284

== ENCOUNTER 2022-08-30 08:17 | Outpatient (REF) | payer MEDICARE, MEDICAID, SELFPAY ==
--- NOTE | ~2022-08-30 | MR_ITS ---
EXAMINATION: MR BRAIN WITHOUT AND WITH CONTRAST CLINICAL INFORMATION: Complex partial seizure COMPARISON: MRI brain without contrast 12/17/2006 TECHNIQUE: Multiplanar multisequence MR imaging of the brain was obtained without and following the administration of 10 mL Gadavist intravenous contrast. FINDINGS: There is no acute infarct on diffusion-weighted imaging. There is no intracranial hemorrhage on iron-sensitive imaging. No extra-axial collection or mass effect/herniation. There are a few foci of nonspecific bifrontal white matter T2/FLAIR signal abnormality. The hippocampi are symmetric in size, contour, and signal intensity, demonstrating no convincing imaging evidence of mesial temporal sclerosis. The temporal horns appear symmetric. No hydrocephalus. The ventricles are normal in morphology and size. No abnormal parenchymal or extra-axial enhancement. The major flow voids at the skull base are preserved. The midline structures are normal. The cerebellar tonsils are normally positioned. The craniocervical junction is normal. Marrow signal is within normal limits. The visualized soft tissues are without significant abnormality. No signal abnormality within the paranasal sinuses or within the mastoid air cells. MR/MR head/brain wo/w con IMPRESSION: 1. No structural candidate epileptogenic lesion is identified 2. Several foci of T2/FLAIR signal abnormality in the bifrontal white matter are nonspecific but can be seen in the setting of migraine
== END 2022-08-30 08:18 | disposition home or self-care (01) ==
LOC: HO.MRI 08:17
PROVIDERS: Visit Provider Psychiatry & Neurology Neurology
DX: G40.209 Localization-related (focal) (partial) symptomatic epilepsy and epileptic syndromes with complex partial seizures, not intractable, without status epilepticus (principal)
CPT/HCPCS: 70553; A9585

== ENCOUNTER → 2024-06-17 11:30 | Outpatient (BNV) | payer MEDICARE, MEDICAID, SELFPAY | PROVIDERS: Visit Provider Psychiatry & Neurology Psychiatry | DX: F43.10 Post-traumatic stress disorder, unspecified (principal); F39 Unspecified mood [affective] disorder; F41.3 Other mixed anxiety disorders; R41.840 Attention and concentration deficit; F12.90 Cannabis use, unspecified, uncomplicated; Z86.69 Personal history of other diseases of the nervous system and sense organs | CPT/HCPCS: 90792 ==

== ENCOUNTER 2024-06-27 08:26 | Outpatient (REF) | payer MEDICARE, MEDICAID, SELFPAY ==
[2024-06-27 08:58] LABS: MANUAL DIFF FLAG NO
[2024-06-27 10:09] LABS: Estimated Average Glucose 85 mg/dL; Hemoglobin A1C 94.2409 umol/L; Hemoglobin A1c % 4.6 % (<6.0); Total Hemoglobin (HGBA1C) 3516.6571 umol/L
[2024-06-27 10:21] LABS: Basophils Absolute Auto 0.1 X10*3/uL (0.0-0.2); Basophils Percent Auto 1.2 % (0-2); Eosinophils Absolute Auto 0.3 X10*3/uL (0.0-0.4); Eosinophils Percent Auto 4.8 % (0-4); Hematocrit 40.1 % (37.0-47.0); Hemoglobin 13.3 g/dl (12.0-16.0); Imm Gran Abs Auto 0.03 X10*3/uL (0.00-0.03); Imm Gran Pct Auto 0.5 % (0.0-0.4); Lymphocytes Absolute Auto 1.7 X10*3/uL (1.2-4.9); Lymphocytes Percent Auto 25.3 % (20-40); Mean Corpuscular HGB Conc 33.2 g/dl (31.0-35.0); Mean Corpuscular Volume 90.5 fL (80.0-98.0); Mean Platelet Volume 10.5 fL (9.4-12.3); Monocytes Absolute Auto 0.6 X10*3/uL (0.1-1.2); Monocytes Percent Auto 8.3 % (2-11); Neutrophils Percent Auto 59.9 % (45-73); Platelet Count 297 X10*3/uL (160-400); Red Blood Count 4.43 X10*6/uL (4.20-5.50); Red Cell Distribution Width 12.8 % (11.0-16.0); White Blood Count 6.7 X10*3/uL (4.8-10.8)
[2024-06-27 10:53] LABS: Alanine Aminotransferase 95 U/L (0-31); Alkaline Phosphatase 57 U/L (39-117); Anion Gap 11 (12-20); Aspartate Amino Transferase 49 U/L (5-31); Bilirubin Total 0.4 mg/dL (0.0-1.0); Blood Urea Nitrogen 23 mg/dL (9-16); Carbon Dioxide 17 mmol/L (22-29); Chloride 115 mmol/L (96-108); Estimated Glomerular Filt Rate > 60; Glucose Fasting 95 mg/dL (60-99); Iron 139 mcg/dL (30-160); Magnesium 2.3 mg/dL (1.6-2.6); Percent Iron Saturation 52 % (15-50); Potassium 4.6 mmol/L (3.3-5.1); Sodium 138 mmol/L (135-145); Total Iron Binding Capacity 265 mcg/dL (228-428); Total Protein 7.7 g/dL (6.5-8.0); Unsaturated Iron Binding 126 ug/dL
[2024-06-27 10:55] LABS: Free T4 (Free Thyroxine) 0.92 ng/dL (0.71-1.85); Syphilis Screen Nonreactive (Nonreactive); Thyroid Stimulating Hormone 0.82 uIU/mL (0.32-4.0); Vitamin D 25-OH Total 36.1 ng/mL (>30)
[2024-06-27 11:01] LABS: Vitamin B12 737 pg/mL (200-900)
[2024-06-27 11:29] LABS: Erythrocyte Sedimentation Rate 2 MM/HR (0-20)
[2024-06-29 17:38] LABS: Homocysteine 7.4 umol/L (<10.4)
[2024-06-29 18:58] LABS: Follicle Stimulating Hormone 7.6 mIU/mL; Lutenizing Hormone 10.1 mIU/mL
[2024-07-03 12:59] LABS: Testosterone, Total 21 ng/dL (2-45)
[2024-07-04 08:13] LABS: Estradiol Ultra Sensitive 29 pg/mL
[2024-07-12 01:12] LABS: Progesterone 0.3 ng/mL
== END 2024-06-27 08:27 | disposition home or self-care (01) ==
LOC: HO.LAB 08:26
PROVIDERS: PCP Nurse Practitioner Family; Visit Provider Psychiatry & Neurology Psychiatry
DX: F39 Unspecified mood [affective] disorder (principal); Z13.1 Encounter for screening for diabetes mellitus
CPT/HCPCS: 36415; 80053; 82306; 82607; 82670; 82746; 83001; 83002; 83036; 83090; 83540; 83735; 84144; 84146; 84403; 84425; 84439; 84443; 85025; 85652; 86780

== ENCOUNTER → 2024-07-06 14:04 | Outpatient (REF) | payer MEDICARE, MEDICAID, SELFPAY ==
--- NOTE | 2024-07-06 14:11 | ECG_ITS ---
Test Reason : R/O QTC PROLONGNATION Blood Pressure : */* mmHG Vent. Rate : 93 BPM Atrial Rate : 93 BPM P-R Int : 134 ms QRS Dur : 96 ms QT Int : 342 ms P-R-T Axes : 68 66 56 degrees QTcB Int : 425 ms Normal sinus rhythm Normal ECG No previous ECGs available Referred By: Margarita Collins Electronically Signed By: JENNI DAVIS MD
--- OUTSIDE RECORDS SUMMARY | 2024-07-06 16:53 | XMS_ITS | Clinical Summary ---
Author Organization [facility] Address [address] [place] [phone] Phone Care Team Providers Care Data Communications Technician Name Role Phone Presley Vitale MD Primary Care Provider Unavaila ble Allergies No known active allergies Medications aspirin-acetamin ophen-caffeine (EXCEDRIN MIGRAINE) 250-250-65 mg per tablet Take 1 tablet by mouth every 6 hours as needed. 1 Active buPROPion (WELLBUTRIN) 100 mg tablet 1 tablet daily Active clonazePAM (KlonoPIN) 1 mg tablet 1 TABLET 3 TIMES DAILY Active ibuprofen (ADVIL,MOTRIN) 200 mg tablet Take 200 mg by mouth. 4 at a time Active PARoxetine (PAXIL) 40 mg tablet Take 1 Tab by mouth every morning. 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/28/2009 Knee pain 09/28/2009 Anxiety associated with depression 12/26/2007 Herniated lumbar intervertebral disc 09/08/2007 Headache 03/18/2006 Immunizations Name Administration Dates Next Due Diptheria & Tetanus, 6wks to less than 7yo 07/30 Hepatitis B (Kcxkkzr-X-Ofxju , Recombivax HB-Adult) 19yo and older 07/30/2000 Surgical History Surgery Date Site/Laterality Comments OTHER SURGICAL HISTORY PROCEDURE: HISTORY OTHER; COMMENT: l5 s1 disc surgery ddr todd mar 2008 Medical History Medical History Date Comments Nicotine dependence 12/09/2009 DX:Nicotine dependence Family History Relation Name Status Comments Brother Alive HTN, hyperchol Father Alive MIs 40's, HTN, hyperchol Mother Alive HTN Paternal Grandfather prostat e cancer Paternal Grandmother Alive ovarian cancer 60's Sister Alive stroke Uncle Alive RI at 40's Social History Tobacco Use Types Packs/Day Years Used Date Smoking Tobacco: Every Day Cigarettes Alcohol Use Standard Drinks/Week Comments Not Asked 0 (1 standard drink = 0.6 oz pur e alcohol) Comments Unknown Sex and Gender Information Value Date Recorded Sex Assigned at Not on file Legal Sex Female 6:25 PM EST Gender Identity Not on file Sexual Orientation Not on file Obstetrics History Plan of Treatment Upcoming Encounters Date Type Department Care Team ([facility] st Contact Info) Description 07/15/2024 11:00 AM EDT Consult [facility] [address] [place] [address] Caryn Stack MD [address] [place] [address] Health Maintenance Due Date Last Done Comments Hepatitis B Vaccines (2 of 3 - 3-dose series) 08/27/2000 07/30/2000 Pneumococcal Vaccine: Pediat rics (0 to 5 Years) and At-Risk Patients (6 to 64 Years) (1 of 2 - PCV) 2004 Cervical Cancer Screening: P ap Smear 2006 DTaP,Tdap,and Td Vaccines (2 - Tdap) 07/30/2010 07/30/2000 COVID-19 Vaccine (2023-2 5 season) 2024 Influenza Vaccine (#1) 2024 Depression Screening 03/13/2024 Hepatitis C Screening 03/13/2024 Medicare Annual Wellness Visit 03/13/2024 Social Influencers of Health Screening 03/13/2024 HIV Screening Completed 06/13/2005 HIB Vaccines Aged Out No longer eligi ble based on patient's age to complete this topic HPV Vaccines Aged Out No longer eligi ble based on patient's age to complete this topic Hepatitis A Vaccines Aged Out No long er eligible based on patient's age to complete this topic IPV Vaccines Aged Out No longer eligi ble based on patient's age to complete this topic MMR Vaccines Aged Out No longer eligi ble based on patient's age to complete this topic Meningococcal ACWY Vaccine Aged Out N o longer eligible based on patient's age to complete this topic Meningococcal B Vacine Aged Out No lo nger eligible based on patient's age to complete this topic RSV Immunization Patients Un jhoana 20 months Aged Out No longer eligible b ased on patient's age to complete this topic Varicella Vaccines Aged Out No longer eligible based on patient's age to complete this topic Procedures Procedure Name Priority Date/Time Associated Diagnosis Comments HIV SCREENING Routine 06/13/2005 from Last 3 Months or Most Recently Relevant to Health Maintenance Results * HIV Screening (06/13/2005) [facility] HIV Screening abstracted us Historical Provider HEALTH MAINTENANCE Final Result from Last 3 Months or Most Recently Relevant to Health Maintenance Insurance MEDICAID - [place] MEDICARE Care Teams Data Communications Technician Relationship Specialty Start Date End Date Presley Vitale MD Need Updated Address PCP - General Internal Medicine 04/09/24
== END ==
LOC: HO.CARD 14:04
PROVIDERS: PCP Nurse Practitioner Family; Visit Provider Psychiatry & Neurology Psychiatry
DX: F39 Unspecified mood [affective] disorder (principal); F43.10 Post-traumatic stress disorder, unspecified
CPT/HCPCS: 93005

== ENCOUNTER → 2024-07-06 14:11 | Outpatient (BNV) | payer MEDICARE, MEDICAID, SELFPAY | PROVIDERS: PCP Nurse Practitioner Family; Visit Provider Internal Medicine Cardiovascular Disease | DX: Z13.6 Encounter for screening for cardiovascular disorders (principal) | CPT/HCPCS: 93010 ==

== ENCOUNTER 2024-07-14 10:15 | Outpatient (RCR) | payer MEDICARE, MEDICAID, SELFPAY ==
[2024-06-12 09:47] VITALS: BMI 32.4
[2024-06-12 10:47] VITALS: BP 136/84; PULSE 89; TEMP 37.4
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
--- NOTE | 2024-06-15 16:19 | HO.PHP ---
PHP staff member reached out to Laura due to her not showing for program. Laura disclosed that she is struggling with leg pain today and has a migraine, therefore, won't be in attendance to program. PHP staff member explored safety concerns. None were reported. Laura will be in attendance to program tomorrow.
--- NOTE | 2024-06-18 15:31 | HO.PHP ---
Client's case has been opened and reviewed in team.
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
--- NOTE | 2024-06-25 08:34 | HO.PHP ---
PHP Admin, Ania, informed the team that Laura will not be in attendance to program today due to not having childcare. Laura reported no safety concerns and will be in attendance to program tomorrow.
--- NOTE | 2024-06-26 18:35 | HO.PHPPROGNO ---
Subjective Subjective Date of Service: 06/26/24 Reason For Visit: PTSD,depression,anxiety Interim History: Patient seen for folllow-up. Still feeling overwhelmed, confused, thoughts are racing. Still anxious, but jittery and easily tearful. She reached 5 mg of Abilify. Seem pretty good, I'm not having any side effects . Still having feelings of helplessness and transient hopelessness that she wont get better. Denies any HI, AH, VH. Sleep is improving with ABilify. We discussed trying to lower dose of Effexor a bit, as I am concerned if it is a bit overactivating. Medication Compliance: Yes Side effects from medications: No Attending Groups: Yes Review of Systems Acute medical concerns: No Mental Status Exam Mental Status Exam Narrative: Alert, oriented, in no acute distress. Fidgeting. Eye contact appropriate. Mood depressed, anxious, affect labile, mood congruent with tearfulness and some irritability. Speech normal, no pressured speech or latency. Thought process scattered, linear, coherent, some internal preoccupation but maintains insight. Thought content related to stressors, executive dysfunction, feeling overwhelmed, some transient helplessness and hopelessness, denies SI, intention or plan. Denies any aggressive ideation. thought content invoving loosening of associations, some ideas of reference, No evidence of psychosis. Insight and judgment fair but adequate. Diagnostics Vital Signs (24Hr): BMI result Body Mass Index 32.4 Assessment & Plan Assessment & Plan (1) PTSD (post-traumatic stress disorder): Status: Acute Code(s): F43.10 - Post-traumatic stress disorder, unspecified (2) Mood disorder: Status: Acute Code(s): F39 - Unspecified mood [affective] disorder (3) Other mixed anxiety disorders: Status: Acute Code(s): F41.3 - Other mixed anxiety disorders (4) Attention and concentration deficit: Status: Acute Code(s): R41.840 - Attention and concentration deficit (5) Cannabis use disorder: Status: Acute Code(s): F12.90 - Cannabis use, unspecified, uncomplicated (6) History of partial seizures: Status: Acute Code(s): Z86.69 - Personal history of other diseases of the nervous system and sense organs Plan continue to titrate Abilify toward 7 mg decrease venlafaxine ER to 187.5 mg qam continue gabapentin 600 mg TID continue topiramate 100 mg BID continue other regular medications?- meloxicam 15 mg qd Routine lab work ordered as indicated EKG, routine for baseline QTc for medication considerations as indicated Continue to monitor Certification I certify that partial hospital treatment is medically necessary due to the symptoms and problems resulting from the patient's mental illness and the failure to treat the patient at the partial hospital level of care would likely result in the patient requiring inpatient psychiatric care which could not be prevented at a less intensive level of care. Total time managing care of this patient today ____ minutes. Discharge Plan Discharge Attending provider: Margarita Collins Medications: New aripiprazole 2 mg tablet 2 mg PO BEDTIME Qty: 14 0RF aripiprazole 5 mg tablet 5 mg PO BEDTIME Qty: 14 0RF aripiprazole 2 mg tablet 2 mg PO DAILY Qty: 14 0RF topiramate 50 mg tablet 50 mg PO DAILY Qty: 14 0RF Rx Instructions: in afternoon venlafaxine 150 mg capsule,extended release 24hr 150 mg PO DAILY Qty: 14 0RF venlafaxine 37.5 mg capsule,extended release 24hr 37.5 mg PO DAILY Qty: 14 0RF gabapentin 600 mg tablet 600 mg PO TID Qty: 40 0RF prazosin 1 mg capsule 1 mg PO BID Qty: 30 0RF ziprasidone HCl 20 mg capsule 20 mg PO BID PRN (Reason: agitation) Qty: 30 0RF Rx Instructions: give with food (meal/snack) Continued topiramate 100 mg tablet 1 tab PO BID venlafaxine 225 mg tablet extended release 24hr 1 tab PO DAILY meloxicam 15 mg tablet 15 mg PO DAILY gabapentin 300 mg capsule 600 mg PO TID Print Language: Argentine
--- NOTE | 2024-06-29 16:56 | P.PNPSP_ITS ---
Subjective Subjective Date of Service: 06/29/24 Reason For Visit: PTSD,depression,anxiety Interim History: Patient seen for followup Continues on ABilify with 2 mg in AM and 5 mg at night. Seems less labile, she agrees. It is also worth noting that she was only able to picker tender helper the 37.5 mg capsules of Effexor (pharmacy has not given her the 150 mg caps yet) so she has only been tkaing 37.5 mg. She denies any serotonin withdrawl sx. But still is still quite fidgety and scattered. We called the pharmacy and confirmed the 150 mg capsules ready for picker tender helper today. History suggestive of ADHD struggles but feel disinclined to trial a stimulant due to suboptimal treatment of anxiety. She is still internally ruminative, lots of anxiety, overthinking and some referential thinking. Still notices being easily triggered by traumatic memories. Denies any SI, HI, AH, VH. Medication Compliance: Yes Side effects from medications: No Attending Groups: Yes Review of Systems Acute medical concerns: No Mental Status Exam Mental Status Exam Narrative: Alert, oriented, in no acute distress. Fidgeting. Eye contact appropriate. Mood depressed, anxious, affect less labile, mood congruent. Speech normal, no pressured speech or latency. Thought process scattered, linear, coherent. Thought content related to stressors, executive dysfunction, feeling overwhelmed, some transient helplessness, denies hopelessness, denies SI, intention or plan. Denies any aggressive ideation. . No evidence of psychosis. Insight and judgment fair but adequate. Diagnostics Vital Signs (24Hr): BMI result Body Mass Index 32.4 Assessment & Plan Assessment & Plan (1) PTSD (post-traumatic stress disorder): Status: Acute Code(s): F43.10 - Post-traumatic stress disorder, unspecified (2) Mood disorder: Status: Acute Code(s): F39 - Unspecified mood [affective] disorder (3) Other mixed anxiety disorders: Status: Acute Code(s): F41.3 - Other mixed anxiety disorders (4) Attention and concentration deficit: Status: Acute Code(s): R41.840 - Attention and concentration deficit (5) Cannabis use disorder: Status: Acute Code(s): F12.90 - Cannabis use, unspecified, uncomplicated (6) History of partial seizures: Status: Acute Code(s): Z86.69 - Personal history of other diseases of the nervous system and sense organs Plan trial ziprasidone 20 mg QHS - BID as tolerated will also start prazosin 1 mg qhs, may consider trialing BID if ziprasidone too sedating during the day continue to Abilify 2 mg in AM and 5 mg in HS continue venlafaxine ER at 150 mg qam continue gabapentin 600 mg TID continue topiramate 100 mg BID continue other regular medications?- meloxicam 15 mg qd Routine lab work ordered as indicated EKG, routine for baseline QTc for medication considerations as indicated Continue to monitor Patient educated on: diagnosis and medication risk/benefits Informed Consent: understands Reason for contiued partial hosp. stay Substantial Risk for: inability to function and med/psych decompensation Certification I certify that partial hospital treatment is medically necessary due to the symptoms and problems resulting from the patient's mental illness and the failure to treat the patient at the partial hospital level of care would likely result in the patient requiring inpatient psychiatric care which could not be prevented at a less intensive level of care. Total time managing care of this patient today __30__ minutes. Discharge Plan Discharge Attending provider: Margarita Collins Medications: New aripiprazole 2 mg tablet 2 mg PO BEDTIME Qty: 14 0RF aripiprazole 5 mg tablet 5 mg PO BEDTIME Qty: 14 0RF aripiprazole 2 mg tablet 2 mg PO DAILY Qty: 14 0RF topiramate 50 mg tablet 50 mg PO DAILY Qty: 14 0RF Rx Instructions: in afternoon venlafaxine 150 mg capsule,extended release 24hr 150 mg PO DAILY Qty: 14 0RF venlafaxine 37.5 mg capsule,extended release 24hr 37.5 mg PO DAILY Qty: 14 0RF gabapentin 600 mg tablet 600 mg PO TID Qty: 40 0RF prazosin 1 mg capsule 1 mg PO BID Qty: 30 0RF ziprasidone HCl 20 mg capsule 20 mg PO BID PRN (Reason: agitation) Qty: 30 0RF Rx Instructions: give with food (meal/snack) Continued topiramate 100 mg tablet 1 tab PO BID venlafaxine 225 mg tablet extended release 24hr 1 tab PO DAILY meloxicam 15 mg tablet 15 mg PO DAILY gabapentin 300 mg capsule 600 mg PO TID Print Language: Swedish
--- NOTE | 2024-07-01 11:31 | PC.NURSE ---
Dr Collins is aware of Lab results completed on 06/27/24 including CL 115, CO2 17, Gap 11, BUN 23, AST 49, ALT 95. Patient advised to increase water intake. No new orders.
--- NOTE | 2024-07-10 12:03 | HO.PHPPROGNO ---
Subjective Subjective Date of Service: 07/09/24 Reason For Visit: PTSD,depression,anxiety Interim History: Met with patient for follow-up We had given ample time to Abilify which did not seem to improve emotional dysregulation (only for 3 or 4 days initially) , racing thoughts, anxiety. Keep connecting and connecting, just nonsense. connecting, connecting things the bag, with a box and the color blue. Why is it blue? Tayo she has been having trouble with pink and purple and is trying to come to terms with these colors ..find peace with them...cant keep fighting them like this . We tried augmenting with ziprasidone but these were not helpful. Made her feel nauseuos and sick. We will be switching to combination of lithium and risperidone, and off ABilify. Seeing as she has ran out of ABilify 2 days ago, and suffered no major side effects (also no changes or decline in MH sx). Will not restart that one and will instead low dose lithium and risperidone. Denies SI, HI, AH, VH. Medication Compliance: Yes Side effects from medications: Yes Attending Groups: Yes Mental Status Exam Mental Status Exam Narrative: Alert, oriented, in no acute distress. Fidgeting. Eye contact appropriate. Mood overwhelmed, depressed, anxious, affect labile, mood congruent, easlily tearful, crying. anxious.. Speech normal, no pressured speech or latency. Thought process scattered, linear, coherent, FOI no FILIBERTO. Thought content related to stressors, executive dysfunction, feeling overwhelmed, some transient helplessness, denies hopelessness, denies SI, intention or plan. Denies any aggressive ideation. Continued referential ideaiton. Insight and judgment fair but adequate. Diagnostics Vital Signs (24Hr): BMI result Body Mass Index 32.4 Assessment & Plan Assessment & Plan (1) Bipolar affective, mixed, unspec: Status: Acute Code(s): F31.60 - Bipolar disorder, current episode mixed, unspecified Assessment and Plan: working diagnosis: Bipolar affective, mixed, sev w/ psychotic features (namely referential ideation, vague paranoia, racing thought, some FILIBERTO) some overlap with PTSD symptoms (2) PTSD (post-traumatic stress disorder): Status: Acute Code(s): F43.10 - Post-traumatic stress disorder, unspecified (3) Other mixed anxiety disorders: Status: Acute Code(s): F41.3 - Other mixed anxiety disorders (4) Attention and concentration deficit: Status: Acute Code(s): R41.840 - Attention and concentration deficit (5) Cannabis use disorder: Status: Acute Code(s): F12.90 - Cannabis use, unspecified, uncomplicated (6) History of partial seizures: Status: Acute Code(s): Z86.69 - Personal history of other diseases of the nervous system and sense organs Plan continue PHP start lithium 150 mg BID start risperidone 0.125 mg in AM and 0.25 mg QHS may restart prazosin once settled on Li/Risp if still needed do not continue Abilify continue venlafaxine ER 150 mg qam (plan to taper dose) will decrease to 112.5 mg next week (and provide taper schedule) continue gabapentin 600 mg TID (by neurology) continue topiramate 100 mg BID (by neurology) continue other regular medications?- meloxicam 15 mg qd Routine lab work ordered as indicated EKG, routine for baseline QTc for medication considerations as indicated discontinued: ziprasidone (poorly tolerated), ABilify VS: (06/12/24) 136/84; 89 bpm Continue to monitor Patient educated on: diagnosis, medication risk/benefits, substance abuse and medical condition Informed Consent: understands Reason for contiued partial hosp. stay Substantial Risk for: inability to function and med/psych decompensation Certification I certify that partial hospital treatment is medically necessary due to the symptoms and problems resulting from the patient's mental illness and the failure to treat the patient at the partial hospital level of care would likely result in the patient requiring inpatient psychiatric care which could not be prevented at a less intensive level of care. Total time managing care of this patient today __30__ minutes. Discharge Plan Discharge Attending provider: Margarita Collins Medications: New topiramate 50 mg tablet 50 mg PO DAILY Qty: 14 0RF Rx Instructions: in afternoon venlafaxine 37.5 mg capsule,extended release 24hr 37.5 mg PO DAILY Qty: 14 0RF prazosin 1 mg capsule 1 mg PO BID Qty: 30 0RF cholecalciferol (vitamin D3) [Vitamin D3] 50 mcg (2,000 unit) capsule 100 mcg PO DAILY Qty: 60 1RF lithium carbonate 150 mg capsule 150 mg PO BID Qty: 30 0RF risperidone 0.25 mg tablet 0.25 mg PO BID Qty: 30 0RF lamotrigine 25 mg tablet 25 mg PO DAILY 14 Days Qty: 14 0RF venlafaxine 75 mg capsule,extended release 24hr 75 mg PO DAILY Qty: 30 0RF Rx Instructions: taper as directed Continued meloxicam 15 mg tablet 15 mg PO DAILY gabapentin 300 mg capsule 600 mg PO TID gabapentin 600 mg tablet 600 mg PO TID Qty: 45 0RF topiramate 100 mg tablet 1 tab PO BID Qty: 30 0RF Discontinued venlafaxine 225 mg tablet extended release 24hr 1 tab PO DAILY Print Language: Ukrainian
--- NOTE | 2024-07-10 23:05 | PM.EVENT ---
Event Note Date of Service: 07/13/24 Event Note: Checked in with patient, as we had made a major treatment plan change off of ABilify and onto lithium and risperidone which she appears to be tolerating well. She slept well last night, notes she did not experience any of the side effects like she experienced on ziprasidone. In fact she notes feeling less anxious today, less racy, a little more stable . Denies SI, HI, AH, VH. Will follow-up on Saturday. continue PHP continue lithium 150 mg BID (may transition to ER lithium qhs) continue risperidone 0.125 mg (1/2 tablet) in AM and may repeat 0.125 mg in afternoon if needed increase risperidone to 0.5 mg QHS hold off restarting prazosin until settled on Li/Risp if still needed do not continue Abilify continue venlafaxine ER 150 mg qam (plan to taper dose) will decrease to 112.5 mg next week (and provide taper schedule) continue gabapentin 600 mg TID continue topiramate 100 mg BID continue other regular medications?- meloxicam 15 mg qd Routine lab work ordered as indicated EKG, routine for baseline QTc for medication considerations as indicated discontinued: ziprasidone (poorly tolerated), Abilify (ineffective) VS: (06/12/24) 136/84; 89 bpm Continue to monitor Time Spent With Patient Time: Total time managing care of this patient today __30__ minutes.
--- NOTE | 2024-07-14 12:05 | P.PNPSP_ITS ---
Subjective Subjective Date of Service: 07/14/24 Reason For Visit: PTSD,depression,anxiety Interim History: Patient seen for follow-up. She anticipates discharge at end of day. Overall doing better on combination of lithium and risperidone. Has been well tolerated. Has been taking Risperdal 0.25 mg TID, which helped with her thinking. Feeling calmer and more comfortable, less angst and paranoia. Mood is still up and down but less severe. She demonstrates better control, is not grossly labile. Says her toughest time of day is in the evening for the past 1-2 hours before bed. She is encouraged to utilize 0.25 as a prn which she could take in the evening, or add to bedtime dose as 0.5 mg. The meds at first were great, was able to shut my brain down. There are still times I get anxious and triggered . At this point she notes that her daughter inadvertently is a trigger for her her mannerisms are like her father...we got into an argument and she called me 'stupid'. Says she has been working on her PTSD issues in groups, trying to lean on coping skills. She is able to color again, which had been a coping skill for her but was having perceptual disturbances and a lot of referential intrusions regarding specific colors. this actually has gotten a lot better. Is that one of the medications helping? Will plan to continue titration of lithium to 300 BID by end of week and then will get lithium level checked 5 days later (next week). Lab slip given for creatinine and lithium level. She has appointments at [facility] with her therapist and a [facility] intake appointment on 07/27 and an upcoming psych appointment on 09/02. Medication Compliance: Yes Side effects from medications: No Attending Groups: Yes Review of Systems Acute medical concerns: No Mental Status Exam Mental Status Exam Narrative: Alert, oriented, in no acute distress. Masked. Eye contact appropriate. Mood better, less anxious, affect less labile, mood congruent, no notable tearfulness or lability. Speech normal, no pressured speech or latency. Thought process linear, coherent, no FOI no FILIBERTO. Thought content related to stressors, executive dysfunction, less overwhelmed, more future-oriented, denies hopelessness, SI, intention or plan. Denies any aggressive ideation. Continued referential ideation. Insight and judgment fair but adequate. Diagnostics Vital Signs (24Hr): BMI result Body Mass Index 32.4 Assessment & Plan Assessment & Plan (1) Bipolar affective, mixed, unspec: Status: Acute Code(s): F31.60 - Bipolar disorder, current episode mixed, unspecified Assessment and Plan: working diagnosis: Bipolar affective, mixed, sev w/ psychotic features (namely referential ideation, vague paranoia, racing thought, some FILIBERTO) some overlap with PTSD symptoms (2) PTSD (post-traumatic stress disorder): Status: Acute Code(s): F43.10 - Post-traumatic stress disorder, unspecified (3) Other mixed anxiety disorders: Status: Acute Code(s): F41.3 - Other mixed anxiety disorders (4) Attention and concentration deficit: Status: Acute Code(s): R41.840 - Attention and concentration deficit (5) Cannabis use disorder: Status: Acute Code(s): F12.90 - Cannabis use, unspecified, uncomplicated (6) History of partial seizures: Status: Acute Code(s): Z86.69 - Personal history of other diseases of the nervous system and sense organs Plan Discharge [facility] continue medications: lithium 300 mg BID risperidone 0.25/0.25/0.5 mg prazosin 1 mg qhs-BID venlafaxine ER tapered to 112.5 mg qd, will remain there until she is seen by OP provider continue gabapentin 600 mg TID (by neurology) continue topiramate 100 mg BID (by neurology) continue other regular medications?- meloxicam 15 mg qd Routine lab work reviewed, pending results for lithium level and supervisor cellars EKG, routine for baseline QTc for medication considerations as indicated discontinued: ziprasidone (poorly tolerated), ABilify (ineffective up to 10 mg) Refills sent to pharmacy Will defer further medication management to outpatient provider *Safety plan reviewed *Discharge diagnoses, treatment course, discharge plan have been reviewed with patient (including medication regime, medication management, potential side effects) as well as treatment rationale were also revisited *Discharge paperwork signed and given to patient, copy sent for scanning to chart *If patient wishes, outpatient provider may reach out for any further questions or clarification as pertains to this patient?s clinical care/treatment during their stay at [facility] (contact information provided to patient) Patient educated on: diagnosis and medication risk/benefits Informed Consent: understands Reason for contiued partial hosp. stay Substantial Risk for: stable for discharge Certification I certify that partial hospital treatment is medically necessary due to the symptoms and problems resulting from the patient's mental illness and the failure to treat the patient at the partial hospital level of care would likely result in the patient requiring inpatient psychiatric care which could not be prevented at a less intensive level of care. Total time managing care of this patient today __60__ minutes. Discharge Plan Discharge Attending provider: Margarita Collins Medications: New topiramate 50 mg tablet 50 mg PO DAILY Qty: 14 0RF Rx Instructions: in afternoon venlafaxine 37.5 mg capsule,extended release 24hr 37.5 mg PO DAILY Qty: 14 0RF prazosin 1 mg capsule 1 mg PO BID Qty: 30 0RF cholecalciferol (vitamin D3) [Vitamin D3] 50 mcg (2,000 unit) capsule 100 mcg PO DAILY Qty: 60 1RF venlafaxine 75 mg capsule,extended release 24hr 75 mg PO DAILY Qty: 30 0RF Rx Instructions: taper as directed lithium carbonate 300 mg capsule 300 mg PO BID Qty: 30 0RF Continued meloxicam 15 mg tablet 15 mg PO DAILY gabapentin 600 mg tablet 600 mg PO TID Qty: 45 0RF topiramate 100 mg tablet 1 tab PO BID Qty: 30 0RF risperidone 0.5 mg tablet 0.5 mg PO BEDTIME Qty: 14 0RF Changed risperidone 0.25 mg tablet 0.25 mg PO TID Qty: 42 0RF Rx Instructions: in AM and at lunchtime and dinnertime (separate script for 0.5 mg QHS) lamotrigine 25 mg tablet See Rx Instructions .ROUTE .COMPLEX Qty: 90 0RF Rx Instructions: take 2 tablets daily x 2 weeks, then increase to 3 tablets daily Discontinued venlafaxine 225 mg tablet extended release 24hr 1 tab PO DAILY gabapentin 300 mg capsule 600 mg PO TID Stand Alone Forms: Patient Portal Discharge page Patient Education: Bipolar Disorder (ED), Bipolar Disorder (DC), Post Traumatic Stress Disorder (ED), Post Traumatic Stress Disorder (DC) Print Language: Danish
--- NOTE | 2024-07-16 07:52 | PC.NURSE ---
Lab results on 07/14/24 AST 58, ALT 141, Anti-HCV Reactive, [place] 0.24, Rheum Factor 40.4. Labs completed on 06/27/24-CL 115, CO2 17, Gap 11BUN 23, Saturation 52, AST 49, ALT 95. Dr. Collins is aware of patient's lab results. Dr. Collins to f/u with phone call to patient. Faxed lab results completed on 06/27/24 and 07/14/24 to patient's PCP's office at [facility] on 07/14/14 and 07/16/24.
--- NOTE | 2024-07-17 15:03 | PM.EVENT ---
Event Note Date of Service: 07/16/24 Event Note: Reached out to patient to discuss lab work (specifically regarding Hep C results). Patient was, at the time, driving and was unable to talk for long. We agreed to talk tomorrow. Time Spent With Patient Time: Total time managing care of this patient today __5__ minutes.
--- NOTE | 2024-07-17 15:23 | P.EN_ITS ---
Event Note Date of Service: 07/17/24 Event Note: Tried reaching patient at 8:30 am and just before noon but there was no answer. I left a message in the morning asking she return my call to [facility] to check in about medications and labs. I was able to reach her at 3pm however she again was driving and said she was running late for an eye appointment and was unable to talk. Staff reached out to patient and left a VM message asking patient to come for an appointment on Saturday to meet with this technical report writer. Time Spent With Patient Time: Total time managing care of this patient today __5__ minutes.
--- NOTE | 2024-07-22 15:25 | PC.NURSE ---
I spoke to Cici MCELROY from Laura's PCP's office at [facility] and confirmed that they did get the faxed Lab results that I faxed to the office on 07/16/24 that were completed on 07/14/24. I also reviewed with Cici verbally patient's abnormal labs including Anti-HCV reactive result, AST 58, ALT 141, [place] 0.24, Rhem factor 40.4 also reviewed lab results completed on 06/27/24 including CL 115, Co2 17, Gap 11, BUN 23, Saturation 52, AST 40, ALT 95. Cici stated she will review the results with Laura's PCP and will make a f/u appointment with Laura to be seen by her PCP.
== END 2024-07-14 23:59 | disposition home or self-care (01) ==
LOC: HO.PHPA 10:15
PROVIDERS: Visit Provider Psychiatry & Neurology Psychiatry
DX: F31.60 Bipolar disorder, current episode mixed, unspecified (principal); F43.10 Post-traumatic stress disorder, unspecified; F41.3 Other mixed anxiety disorders; R41.840 Attention and concentration deficit; F39 Unspecified mood [affective] disorder; F12.90 Cannabis use, unspecified, uncomplicated; Z86.69 Personal history of other diseases of the nervous system and sense organs; Z79.899 Other long term (current) drug therapy
CPT/HCPCS: 90791; 90853

== ENCOUNTER 2024-07-14 12:18 | Outpatient (REF) | payer MEDICARE, MEDICAID, SELFPAY ==
[2024-07-14 14:18] LABS: Lithium 0.24 mmol/L (0.60-1.20)
[2024-07-14 14:22] LABS: Alanine Aminotransferase 141 U/L (0-31); Aspartate Amino Transferase 58 U/L (5-31); Estimated Glomerular Filt Rate > 60
[2024-07-14 14:24] LABS: Rheumatoid Factor 40.4 IU/mL (<15.0)
--- OUTSIDE RECORDS SUMMARY | 2024-07-14 14:59 | XMS_ITS | Clinical Summary ---
Author Organization [facility] Address [address] [place] [phone] Phone Care Team Providers Care Emergency Department Nurse Name Role Phone Presley Vitale MD Primary [...] to less than 7yo 07/30 Hepatitis B ([id number] , Recombivax HB-Adult) 19yo and older 07/30/2000 [...] cancer 60's Sister Alive stroke Uncle Alive NH at 40's Social History Tobacco Use Types [...] Upcoming Encounters Date Type Department Care Team ([facility] st Contact Info) Description 07/15/2024 11:00 AM EDT Consult [facility] [address] [place] [address] Caryn Stack MD [address] [place] [address] Health Maintenance Due Date Last [...] Health Maintenance Results * HIV Screening (06/13/2005) [facility] HIV Screening abstracted us Historical Provider HEALTH MAINTENANCE Final Result from Last 3 Months or Most Recently Relevant to Health Maintenance Insurance MEDICAID - [place] MEDICARE Care Teams Emergency Department Nurse Relationship Specialty Start Date End Date Presley Vitale MD Need Updated Address PCP - General Internal Medicine 04/09/24
[2024-07-14 16:46] LABS: CT PCR NOT DETECTED (Not Detect.); NG PCR NOT DETECTED (Not Detect.)
[2024-07-15 03:47] LABS: Syphilis Screen Nonreactive (Nonreactive)
[2024-07-15 04:02] LABS: HBS Num1 2.29 mIU/mL (0-7.99); HBc Num1 0.18 S/CO (0.00-0.79); HBsAGNum1 0.27 S/CO (0.00-0.99); HIV AB/AG Nonreactive (Nonreactive); HIV Num 1 0.06 S/CO (0.00-0.99); Hepatitis B Core Antibody Nonreactive (Nonreactive); Hepatitis B Surface Antigen Negative (Negative); ~HepC Num1 12.32 S/CO (0.00-0.79); ~Hepatitis B Surface Antibody NONREACTIVE (Nonreactive); ~Hepatitis C Antibody Reactive (Nonreactive)
== END 2024-07-14 12:19 | disposition home or self-care (01) ==
LOC: HO.LAB 12:18
PROVIDERS: PCP Nurse Practitioner Family; Visit Provider Psychiatry & Neurology Psychiatry
DX: F31.60 Bipolar disorder, current episode mixed, unspecified (principal); M79.7 Fibromyalgia
CPT/HCPCS: 80178; 82565; 84450; 84460; 86431; 86704; 86706; 86780; 86803; 87340; 87389; 87491; 87591